=== PATIENT | female | born 1965 | race Caucasian/White ===

== ENCOUNTER → 2019-07-30 07:26 | Outpatient (CLI) | payer BC, MEDICARE, SELFPAY ==
--- NOTE | ~2019-07-30 | MM_ITS ---
EXAMINATION: MM screening pk BI w kaz HISTORY: Screening mammogram TECHNIQUE: Craniocaudal and mediolateral oblique 3-D tomosynthesis images were obtained and synthetic 2-D images were generated. CAD analysis was submitted and interpreted. COMPARISON: 11/25/2017, 07/22/2016, 05/30/2014 bilateral digital screening mammogram examinations BREAST PARENCHYMAL COMPOSITION: There are scattered areas of fibroglandular density. FINDINGS: There is no evidence of suspicious mass, calcification, or architectural distortion to sugg est malignancy in either breast. There has been no suspicious interval change. IMPRESSION: 1. No mammographic evidence of malignancy. 2. Recommend routine screening mammography in one year. BI-RADS Category 1: Negative Reviewed, dictated and finalized at location A.
== END ==
PROVIDERS: PCP Family Medicine; Visit Provider Physician Assistant
DX: Z12.31 Encounter for screening mammogram for malignant neoplasm of breast (principal)
CPT/HCPCS: 77063; 77067

== ENCOUNTER → 2020-10-27 12:06 | Outpatient (CLI) | payer BC, MEDICARE, SELFPAY ==
--- NOTE | ~2020-10-27 | MM_ITS ---
EXAMINATION: MM screening [facility] BI w kaz HISTORY: Screening mammogram TECHNIQUE: Craniocaudal and mediolateral oblique 3-D tomosynthesis images were obtained and synthetic 2-D images were generated. CAD analysis was submitted and interpreted. COMPARISON: 07/30/2019, 11/25/2017, 07/22/2016 BREAST PARENCHYMAL COMPOSITION: The breasts are almost entirely fatty. FINDINGS: There are stable asymmetries in both breasts. There is no evidence of suspicious mass, calc ification, or architectural distortion to suggest malignancy in either breast. There has been no susp icious interval change. IMPRESSION: 1. No mammographic evidence of malignancy. 2. Recommend routine screening mammography in one year. BI-RADS Category 2: Benign finding(s). Reviewed, dictated and finalized at location A.
== END ==
PROVIDERS: PCP Family Medicine; Visit Provider Physician Assistant
DX: Z12.31 Encounter for screening mammogram for malignant neoplasm of breast (principal)
CPT/HCPCS: 77063; 77067

== ENCOUNTER 2021-05-12 08:47 | Outpatient (CLI) | payer BC, MEDICARE, SELFPAY ==
--- NOTE | ~2021-05-12 | XR_ITS ---
EXAMINATION: XR knee RT min 4V DATE: 05/12/2021 09:15 INDICATION: Lateral right knee pain TECHNIQUE: Anteroposterior, 2 oblique and crosstable lateral views of the right knee were obtained COMPARISON: None. FINDINGS: Alignment is normal. No fracture. Joint spaces appear relatively preserved on nonweightbearing imagi ng. There are tiny marginal osteophytes in all 3 compartments consistent with at least minimal tricom partmental osteoarthritis. Very small right knee joint effusion at the suprapatellar pouch. Small loo se osteochondral body at the posterior recess. Soft tissues are unremarkable. IMPRESSION: 1. At least minimal tricompartmental osteoarthritis at the right knee which could be underestimated o n nonweightbearing imaging. 2. Small right knee joint effusion. Reviewed, dictated and finalized at location A. GER PROGRAM IMPRESSION: 1. At least minimal tricompartmental osteoarthritis at the right knee which cou ld be underestimated on nonweightbearing imaging. 2. Small right knee joint effusion.
== END 2021-05-12 08:48 | disposition home or self-care (01) ==
LOC: ANHIMG 08:54
PROVIDERS: PCP Family Medicine; Visit Provider Physician Assistant
DX: M25.461 Effusion, right knee (principal); M17.11 Unilateral primary osteoarthritis, right knee
CPT/HCPCS: 73564

== ENCOUNTER 2021-06-04 17:44 | Emergency (ER) | payer BC, MEDICARE, SELFPAY ==
--- NOTE | 2021-06-04 18:00 | ED.WOUNDLAC ---
HPI - Wound/Laceration General Chief Complaint: Wound/Laceration Stated Complaint: Right Hand Laceration Time Seen by Provider: 06/04/21 18:10 Source: patient, RN notes reviewed and old records reviewed Mode of arrival: ambulatory Limitations: no limitations History of Present Illness HPI narrative: 55-year-old female presents to the [facility] with 2 lacerations to the right hand 1 over second MCP joint the other over first MCP joint. Bleeding is controlled. Full range of motion. Sensation intact. Capillary refill under 2 seconds. States that she was washing a mug when it broke and cut her. Unknown last Tdap Related Data Home Medications Medication Instructions Recorded Confirmed atorvastatin 06/04/21 diclofenac sodium PO 06/04/21 losartan 06/04/21 Allergies Allergy/AdvReac Type Severity Reaction Status Date / Time No Known Allergies Allergy Unverified 08/05/16 13:03 Review of Systems Review of Systems: All systems reviewed & are unremarkable except as noted in HPI and below Constitutional: Constitutional: Reports no additional constitutional complaints, Denies chills and Denies fever(s) Eyes: Eyes: Reports no additional eye complaints ENT: Reports system reviewed and no additional complaints, except as documented Cardiovascular: Cardiovascular: Reports no additional cardiovascular complaints and Denies chest pain Respiratory: Respiratory: Reports no additional respiratory complaints, Denies cough, Denies dyspnea and Denies wheezing Gastrointestinal: Gastrointestinal: Reports no additional gastrointestinal complaints, Denies abdominal pain, Denies nausea and Denies vomiting Musculoskeletal: Musculoskeletal: Reports no additional musculoskeletal complaints Integumentary/Breasts: Skin/Breast: Reports as per HPI Comments: 2 lacerations MCP joint finger 1 and 2 Neurologic: Reports system reviewed and no additional complaints, except as documented Psychiatric: Psychiatric: Reports no additional psychiatric complaints Allergic/Immunologic: Allergic/Immunologic: Reports no additional allergic/immunologic complaints [facility] Surgical History Surgical History (Updated 06/04/21 @ 20:00 by Erin Leigh) S/P hernia surgery Family History Family History Father Family history of heart disease in male family member before age 55 Other Family history of cardiovascular disease Family history of malignant neoplasm Social History Social History Smoking status: Never smoker Alcohol intake: current Comments At the time of my signature, I reviewed and agree with the nursing past medical, surgical, social, and family history. There is no relevant family history pertinent to the patient complaint. Exam Const: General: healthy appearing, no acute distress and alert Nutritional Appearance: well nourished Orientation/consciousness: patient oriented x3 Limitations: no limitations HENMT: Head: normal to inspection Eyes: Pupils: Equal, round and reactive pupils present Neck: Neck: normal visual inspection, no lymphadenopathy and no meningeal signs Chest: Chest palpation & inspection: normal inspection of the chest Resp: Effort & Inspection: normal respiratory effort Cardio: Rate: regular rate Rhythm: regular rhythm : General: Yes no CVA tenderness Skin: General skin exam: normal color Wounds: wounds noted laceration right posterior thumb size (1); without any surrounding erythema, laceration right posterior 2nd finger size (1.5); without any surrounding erythema Neuro: General: patient oriented x3, moves all extremities, no meningeal signs and no focal motor deficits Cranial nerves: Yes Equal, round and reactive pupils present Speech: normal speech Gait exam (Neuro): Normal gait present Extrem: General: normal to inspection Psych: Appearance: grossly normal and well kempt Mental Status: mental status grossly normal Affect: normal
[2021-06-04 18:06] VITALS: BP 111/76; PULSE 76; RESP 16; TEMP 36.6; O2SAT 99
[2021-06-04] MEDS: TETANUS,DIPHTHERIA,AC PERTUSSIS ADULT (0.5 ML) BOOSTRIX IM (18:18)
[2021-06-04 18:24] VITALS: BP 111/76; PULSE 76; RESP 16; TEMP 36.6; O2SAT 99
--- NOTE | 2021-06-04 18:38 | PC.NURSE ---
report to jeremy oreilly. emd teacher and rn at bedside.
== END 2021-06-04 19:05 | disposition home or self-care (01) ==
PROVIDERS: Emergency Provider Nurse Practitioner; PCP Family Medicine
DX: S61.411A Laceration without foreign body of right hand, initial encounter (principal); W45.8XXA Other foreign body or object entering through skin, initial encounter; Y93.G1 Activity, food preparation and clean up; Z23 Encounter for immunization; E78.00 Pure hypercholesterolemia, unspecified; I10 Essential (primary) hypertension
CPT/HCPCS: 12001; 90471; 90715; 99212; G0463

== ENCOUNTER 2021-09-28 14:29 | Outpatient (CLI) | payer BC, MEDICARE, SELFPAY ==
--- NOTE | ~2021-09-28 | XR_ITS ---
EXAMINATION: XR chest 2V 09/28/2021 14:52 INDICATION: Cough PROCEDURE: 2 view chest COMPARISON: 08/03/2011 FINDINGS: The lungs are clear. The cardiomediastinal silhouette is within normal limits. There are no pleural effusions. There is no pneumothorax suspected. There are cholecystectomy clips. IMPRESSION: 1: NO ACUTE CARDIOPULMONARY DISEASE. Reviewed, dictated and finalized at location B.
== END 2021-09-28 14:30 | disposition home or self-care (01) ==
LOC: ANHIMG 14:41
PROVIDERS: PCP Family Medicine; Visit Provider Physician Assistant
DX: R05.9 Cough, unspecified (principal)
CPT/HCPCS: 71046

== ENCOUNTER 2021-10-13 09:36 | Outpatient (CLI) | payer BC, MEDICARE, SELFPAY ==
--- NOTE | ~2021-10-13 | US_ITS ---
EXAMINATION: US abdomen complete DATE: 10/13/2021 10:20 INDICATION: Elevated liver function tests, diarrhea TECHNIQUE: Multiple grayscale and Doppler ultrasound images of the abdomen were obtained. COMPARISON: 07/22/2016 FINDINGS: The head, body, and tail of the pancreas are normal. The liver is normal with normal echoge nicity and echotexture. No surface nodularity. Normal hepatopetal flow in the main portal vein. The g allbladder is surgically absent. The normal common bile duct measures 5 mm. The visualized portions o f the aorta and inferior vena cava are normal. The right kidney measures 9.3 x 5.9 x 4.8 cm. The left kidney measures 10.6 x 5.0 x 6.6 cm. The kidne ys demonstrate normal parenchymal echogenicity. There is no hydronephrosis. The spleen is normal in a ppearance and measures 8.1 cm. IMPRESSION: 1. Unremarkable postcholecystectomy ultrasound. Reviewed, dictated and finalized at location A.
== END 2021-10-13 09:37 | disposition home or self-care (01) ==
PROVIDERS: PCP Family Medicine; Referring Provider Internal Medicine Gastroenterology; Visit Provider Family Medicine
DX: R19.7 Diarrhea, unspecified (principal); R94.5 Abnormal results of liver function studies
CPT/HCPCS: 76700

== ENCOUNTER 2021-10-14 11:02 | Outpatient (CLI) | payer BC, MEDICARE, SELFPAY ==
[2021-10-14 12:26] LABS: Hematocrit 41.4 % (37.0-47.0); Hemoglobin 14.1 g/dL (12.0-15.0); Mean Corpuscular HGB Conc 34.1 g/dl (32-36); Mean Corpuscular Hemoglobin 33.2 pg (26-34); Mean Corpuscular Volume 97.4 fl (80-100); Mean Platelet Volume 9.4 fl (7.4-10.4); Platelet Count Result 313 k/mm3 (150-375); Red Blood Count 4.25 M/mm3 (4.2-5.4); Red Cell Distribution Width 13.3 % (11.5-14.5); White Blood Count 7.7 K/mm3 (4.5-10.0)
[2021-10-14 12:39] LABS: Prothrombin Time 12.4 Seconds (11.1-14.7)
[2021-10-14 12:50] LABS: Alanine Aminotransferase 54 U/L (6-35); Albumin Level 4.5 g/dL (3.5-5.1); Alkaline Phosphatase 125 U/L (38-126); Anion Gap 6 mmol/L (8-16); Aspartate Amino Transferase 45 U/L (14-36); Bilirubin,Total 1.4 mg/dL (0.2-1.3); Blood Urea Nitrogen 17 mg/dL (7-17); CRP < 0.5 mg/dL (<1.0); Calcium 9.3 mg/dL (8.4-10.2); Carbon Dioxide 28 mmol/L (22-30); Chloride 106 mmol/L (98-107); Estimated Glomerular Filt Rate 58; Glucose 91 mg/dL (65-110); Iron 79 ug/dL (37-170); Potassium 4.1 mmol/L (3.4-5.0); Sodium 140 mmol/L (137-145)
[2021-10-14 12:59] LABS: Percent Iron Saturation 24 % (20-50)
[2021-10-14 13:54] LABS: Erythrocyte Sedimentation Rate 24 mm/hr (0-20)
[2021-10-16 10:14] LABS: Hepatitis A Antibody Total Reactive (Nonreactive)
[2021-10-17 12:10] LABS: LKM 1 Antibody <=20.0 U (<=20.0)
[2021-10-18 13:05] LABS: Mitochondrial (M2) Ab (IgG) <=20.0 U (<=20.0)
[2021-10-18 19:51] LABS: Actin Antibody (IgG) <20 U (<20)
== END 2021-10-14 11:03 | disposition home or self-care (01) ==
LOC: ANHLAB 12:00
PROVIDERS: PCP Family Medicine; Visit Provider Nurse Practitioner
DX: E66.9 Obesity, unspecified (principal); R10.84 Generalized abdominal pain; R15.9 Full incontinence of feces; R19.4 Change in bowel habit; R19.7 Diarrhea, unspecified; R74.8 Abnormal levels of other serum enzymes
CPT/HCPCS: 36415; 80048; 80076; 82728; 83516; 83520; 83540; 83550; 85027; 85610; 85652; 86038; 86140; 86376; 86708

== ENCOUNTER 2021-10-15 09:42 | Outpatient (CLI) | payer BC, MEDICARE, SELFPAY ==
[2021-10-15 11:04] LABS: Toxigenic C. Diff NEGATIVE (NEGATIVE)
== END 2021-10-15 09:43 | disposition home or self-care (01) ==
PROVIDERS: PCP Family Medicine; Visit Provider Nurse Practitioner
DX: E66.9 Obesity, unspecified (principal); R10.84 Generalized abdominal pain; R15.9 Full incontinence of feces; R19.4 Change in bowel habit; R19.7 Diarrhea, unspecified; R74.8 Abnormal levels of other serum enzymes
CPT/HCPCS: 87045; 87177; 87209; 87427; 87493

== ENCOUNTER 2021-10-22 01:15 | Day surgery (SDC) | payer BC, MEDICARE, SELFPAY ==
[2021-10-22 10:32] VITALS: BP 129/89; PULSE 77; RESP 20; TEMP 36.4; O2SAT 99; BMI 37.6
[2021-10-22] MEDS: LACTATED RINGERS 1,000 ML 150 ML IV CONT (10:45)
--- NOTE | 2021-10-22 11:01 | WPDANESEPPF ---
Anes - Initial Pre Proc Eval Procedure: Operation Date: 10/22/21 11:15 Proposed Procedures p Esophagogastroduodenoscopy & Colonoscopy - Jaime Hardwick MD Date/Time: 10/22/21 11:01 Surgeon: Jaime Hardwick MD Pre Op Diagnosis: abdominal pain, diarrhea Patient Data Age: 56 Gender: F Height: 1.63 m Weight: 99.4 kg Last Vital Signs Temp 97.6 F 10/22/21 10:32 Pulse 77 10/22/21 10:32 Resp 20 10/22/21 10:32 BP 129/89 10/22/21 10:32 Pulse Ox 99 10/22/21 10:32 O2 Del Method Room Air 10/22/21 10:32 Allergies Allergy/AdvReac Type Severity Reaction Status Date / Time No Known Allergies Allergy Unverified 10/14/21 09:28 Home Medications Medication Instructions Recorded Confirmed Type atorvastatin 20 mg tablet (Lipitor) 06/04/21 10/19/21 History losartan 50 mg tablet (Cozaar) 50 mg PO 1XD 06/04/21 10/19/21 History cholestyramine-aspartame 4 gram 4 ea PO DAILY 10/14/21 10/19/21 History oral powder (Cholestyramine Light) Pataday 1 % EACH EYE DIRECTED 10/19/21 10/22/21 History Patient hx anesthesia problems: none Family hx anesthesia problems: none Results Review: All pre-operative results and documents have been reviewed as part of the pre-operative evaluation. [facility] Past Medical History Medical History (Updated 10/14/21 @ 10:05 by Barb Delong APRN) AC (acromioclavicular) joint bone spurs Achilles tendinitis Change in bowel habits Elevated liver enzymes Obesity Polycystic ovaries Surgical History Surgical History (Updated 10/19/21 @ 10:01 by Chirag Merritt RN) History of cholecystectomy History of tonsillectomy S/P hernia surgery Family History Family History Father Family history of heart disease in male family member before age 55 Other Family history of cardiovascular disease Family history of malignant neoplasm Social History Social History (Updated 10/14/21 @ 09:47 by Vilma Santana MA) Smoking status: Never smoker Alcohol intake: current Drinks per week: 1 Alcohol use details: About 5 drinks per year. Substance use: never Substance use type: does not use Living arrangements: with family Anes - Evsky Final PreProcedure Day of Procedure 10/22/21 11:01 Patient weight: obese Heart: regular rate and rhythm Lungs: clear to auscultation Airway: Mallampati scale class II Neurological: alert and oriented Last oral intake: >/= 8 hours ASA classification: III Emergent: no Anesthetic plan: proceed Anesthesia type and monitoring: general GIVS and standard monitoring Results Review: All pre-operative results and documents have been reviewed as part of the pre-operative evaluation. Informed Consent: The patient's anesthetic plan and its attendant risks and benefits were discussed with the patient/family/POA. Questions were solicited and answers provided to the satisfaction of the patient/family/POA.
--- NOTE | 2021-10-22 11:14 | WPDHPUPDATE1 ---
History and Physical Update Update Date/Time: 10/22/21 11:14 Patient appears to have tenderness more located over the xiphoid process today. Other symptoms and history unchanged. History and Physical has been reviewed, including an updated exam of the patient. There are NO changes in the patient's condition. Risks, benefits, and alternatives have been discussed and questions answered. Patient agrees to proceed with procedure.
--- NOTE | 2021-10-22 11:39 | SUR.OPER ---
EGD ENDED AT 1131, COLONOSCOPY BEGAN AT 1139.
[2021-10-22 11:53] VITALS: BP 89/56; PULSE 91; RESP 18; O2SAT 95
[2021-10-22 12:03] VITALS: BP 96/57; PULSE 104; RESP 28; O2SAT 98
[2021-10-22 12:13] VITALS: BP 100/70; PULSE 86; RESP 19; O2SAT 94
== END 2021-10-22 12:29 | disposition home or self-care (01) ==
PROVIDERS: PCP Family Medicine; Visit Provider Internal Medicine Gastroenterology
PROC: 0DJ08ZZ Inspection of Upper Intestinal Tract, Via Natural or Artificial Opening Endoscopic (ICD-10-PCS; CPT 43235; principal; 2021-10-22 11:15)
DX: R19.7 Diarrhea, unspecified (principal); K22.2 Esophageal obstruction; R15.1 Fecal smearing; K64.8 Other hemorrhoids; R10.11 Right upper quadrant pain; R10.32 Left lower quadrant pain; E28.2 Polycystic ovarian syndrome; Z90.49 Acquired absence of other specified parts of digestive tract; K44.9 Diaphragmatic hernia without obstruction or gangrene; E66.9 Obesity, unspecified; Z68.37 Body mass index [BMI] 37.0-37.9, adult
CPT/HCPCS: 45380; 43239; 43450; 87081; 88305; J2704; J7120

== ENCOUNTER → 2021-10-26 12:38 | Outpatient (CLI) | payer SELFPAY ==
--- NOTE | ~2021-10-26 | CT_ITS ---
This report was recreated [12/09/2021]. Original report was signed by Jovan Heredia M.D. on 10/28/19 EXAMINATION: CT abdomen pelvis w con INDICATION: Generalized abdominal pain, change in bowel habits TECHNIQUE: Computed tomographic images of the abdomen and pelvis were obtained after the administrati on of 100 cc of Omnipaque 350 intravenous contrast. The dose-length product (DLP) was 1169.93 mGy-cm. Automated exposure control and iterative reconstruction technique were employed. COMPARISON: 03/24/2009 FINDINGS: Minimal dependent atelectasis is present in the lung bases. The heart size is normal. The g allbladder is surgically absent. There is mild enlargement of the common bile duct and central intrah epatic ducts which is likely due to post cholecystectomy state. The liver, spleen, pancreas, and adre nal glands are normal. There is a 4 mm nonobstructing stone of the left kidney upper pole. The right kidney is unremarkable. No pathologically enlarged abdominal or pelvic lymph nodes are identified. Th ere is no free intraperitoneal gas or evidence of bowel obstruction. IMPRESSION: 1. No CT correlate for the patient's symptoms. Reviewed, dictated and finalized at location B. Dictated By: Jovan Heredia MD 10/27/21 1552 Signed By: <Electronically signed by Jovan Heredia MD in OV> Reviewed, dictated and finalized at location B.
--- NOTE | ~2021-10-26 | CT_ITS ---
EXAMINATION: CT abdomen pelvis w con INDICATION: Generalized abdominal pain, change in bowel habits TECHNIQUE: Computed tomographic images of the abdomen and pelvis were obtained after the administrati on of 100 cc of Omnipaque 350 intravenous contrast. The dose-length product (DLP) was 1169.93 mGy-cm. Automated exposure control and iterative reconstruction technique were employed. COMPARISON: 03/24/2009 FINDINGS: Minimal dependent atelectasis is present in the lung bases. The heart size is normal. The g allbladder is surgically absent. There is mild enlargement of the common bile duct and central intrah epatic ducts which is likely due to post cholecystectomy state. The liver, spleen, pancreas, and adre nal glands are normal. There is a 4 mm nonobstructing stone of the left kidney upper pole. The right kidney is unremarkable. No pathologically enlarged abdominal or pelvic lymph nodes are identified. Th ere is no free intraperitoneal gas or evidence of bowel obstruction. IMPRESSION: 1. No CT correlate for the patient's symptoms. Reviewed, dictated and finalized at location B.
[2021-11-16 10:37] LABS: Estimated Glomerular Filt Rate 58
== END ==
PROVIDERS: PCP Family Medicine; Visit Provider Nurse Practitioner
DX: E66.9 Obesity, unspecified (principal); R19.4 Change in bowel habit; R19.7 Diarrhea, unspecified; R74.8 Abnormal levels of other serum enzymes; R10.9 Unspecified abdominal pain
CPT/HCPCS: 99199; 36415; 74177; 82565; Q9967

== ENCOUNTER 2022-01-24 10:16 | Outpatient (CLI) | payer BC, MEDICARE, SELFPAY ==
[2022-01-24 10:46] LABS: Alanine Aminotransferase 26 U/L (6-35); Albumin Level 4.6 g/dL (3.5-5.1); Alkaline Phosphatase 142 U/L (38-126); Aspartate Amino Transferase 35 U/L (14-36); Bilirubin,Total 1.6 mg/dL (0.2-1.3)
== END 2022-01-24 10:17 | disposition home or self-care (01) ==
PROVIDERS: PCP Family Medicine; Visit Provider Nurse Practitioner
DX: R74.8 Abnormal levels of other serum enzymes (principal)
CPT/HCPCS: 36415; 80076

== ENCOUNTER 2022-01-26 15:01 | Outpatient (CLI) | payer BC, MEDICARE, SELFPAY ==
--- NOTE | ~2022-01-26 | XR_ITS ---
EXAMINATION: XR abdomen/kub 1V INDICATION: Abnormal bowel sounds TECHNIQUE: Supine views of the abdomen were obtained on 2 radiographs. COMPARISON: 10/26/2021, 09/18/2012 FINDINGS: The bowel gas pattern is normal. There are no dilated loops of bowel. Cholecystectomy clips are noted. IMPRESSION: 1. No radiographic correlate for the patient's symptoms. Reviewed, dictated and finalized at location B.
== END 2022-01-26 15:02 | disposition home or self-care (01) ==
LOC: ANHIMG 15:08
PROVIDERS: PCP Family Medicine; Visit Provider Nurse Practitioner
DX: R19.15 Other abnormal bowel sounds (principal); K58.2 Mixed irritable bowel syndrome; E80.4 Gilbert syndrome; E66.9 Obesity, unspecified
CPT/HCPCS: 74018

== ENCOUNTER 2022-03-07 12:09 | Outpatient (CLI) | payer BC, MEDICARE, SELFPAY ==
--- NOTE | ~2022-03-07 | XR_ITS ---
XR chest 2V DATE: 03/07/2022 12:37 INDICATION: Cough, bronchitis TECHNIQUE: PA and lateral views COMPARISON: 09/28/2021 PA and lateral chest FINDINGS: Normal heart size. No hilar or mediastinal enlargement. No pulmonary infiltrate or consolid ation, pleural effusion or pulmonary vascular congestion or pneumothorax. Status post cholecystectomy. IMPRESSION: No active cardiopulmonary disease Reviewed, dictated and finalized at location A. D RESEARCH ASSISTANT
== END 2022-03-07 12:10 | disposition home or self-care (01) ==
PROVIDERS: PCP Family Medicine; Visit Provider Physician Assistant
DX: J40 Bronchitis, not specified as acute or chronic (principal)
CPT/HCPCS: 71046

== ENCOUNTER → 2022-04-04 12:52 | Outpatient (CLI) | payer BC, MEDICARE, SELFPAY ==
--- NOTE | ~2022-04-04 | MM_ITS ---
EXAMINATION: MM screening pk BI w kaz HISTORY: Screening TECHNIQUE: Craniocaudal and mediolateral oblique 3-D tomosynthesis images were obtained and synthetic 2-D images were generated. CAD analysis was submitted and interpreted. COMPARISON: Comparison to multiple prior studies sequentially, with oldest reviewed study dated 07/2017. BREAST PARENCHYMAL COMPOSITION: There are scattered areas of fibroglandular density. FINDINGS: There is no evidence of suspicious mass, calcification, or architectural distortion to sugg est malignancy in either breast. There has been no suspicious interval change. IMPRESSION: 1. No mammographic evidence of malignancy. 2. Recommend routine screening mammography in one year. BI-RADS Category 1: Negative Reviewed, dictated and finalized at location B. DRYING SUPERVISOR COOKING CASING
== END ==
PROVIDERS: PCP Family Medicine; Visit Provider Family Medicine
DX: Z12.31 Encounter for screening mammogram for malignant neoplasm of breast (principal)
CPT/HCPCS: 77063; 77067

== ENCOUNTER 2022-04-05 09:38 | Outpatient (CLI) | payer BC, MEDICARE, SELFPAY ==
[2022-04-05 11:42] LABS: Alanine Aminotransferase 29 U/L (6-35); Albumin Level 4.6 g/dL (3.5-5.1); Alkaline Phosphatase 128 U/L (38-126); Aspartate Amino Transferase 33 U/L (14-36); Bilirubin Indirect 1.9 mg/dL (0-1.1); Bilirubin,Total 1.9 mg/dL (0.2-1.3)
[2022-04-05 12:24] LABS: Erythrocyte Sedimentation Rate 40 mm/hr (0-20)
[2022-04-08 06:13] LABS: GGT 31 U/L (3-70)
[2022-04-08 09:59] LABS: Alpha-1-Antitrypsin, QN 145 mg/dL (83-199); Ceruloplasmin 31 mg/dL (18-53)
[2022-04-09 11:31] LABS: Alkaline Phosphatase 116 U/L (37-153); Macrohepatic Isoenzymes 0 % (<=0)
== END 2022-04-05 09:39 | disposition home or self-care (01) ==
PROVIDERS: PCP Family Medicine; Visit Provider Nurse Practitioner
DX: K58.1 Irritable bowel syndrome with constipation (principal); R79.89 Other specified abnormal findings of blood chemistry; R74.8 Abnormal levels of other serum enzymes
CPT/HCPCS: 36415; 80076; 82103; 82390; 82977; 84075; 84080; 84443; 85652

== ENCOUNTER 2022-06-08 19:33 | Emergency (ER) | payer BC, MEDICARE, SELFPAY ==
--- NOTE | ~2022-06-08 | CT_ITS ---
EXAMINATION: CT abdomen pelvis wo con DATE: 06/09/2022 02:51 INDICATION: Right flank pain. TECHNIQUE: Computed tomography (CT) of the abdomen and pelvis was performed without intravenous contr ast. Automated exposure control and iterative reconstruction technique were employed. The dose-length product was 1253.36 mGy-cm. COMPARISON: CT abdomen and pelvis 10/26/2021 FINDINGS: The visualized portions of the lung bases demonstrate mild atelectasis. No pleural effusion . The heart size is normal. No pericardial effusion. The liver and spleen are normal. There are ramirez es of cholecystectomy. The pancreas, adrenal glands, and kidneys are normal. There is no urolithiasis . There is prominent fat in the inguinal canals that may be hernias. There is diverticulosis of the c olon without evidence of diverticulitis. There are no dilated loops of bowel. The appendix is not vis ualized. There are no pathologically enlarged lymph nodes. There is no free intraperitoneal fluid. Th ere is mild thoracolumbar spondylosis. IMPRESSION: 1. No urolithiasis. Reviewed, dictated and finalized at location A. ICAL DATA COORDINATOR IMPRESSION: 1. No urolithiasis.
--- NOTE | ~2022-06-08 | XR_ITS ---
EXAM: XR thoracic spine 3V DATE: 06/08/2022 21:13 HISTORY: Back Pain . COMPARISON: X-ray chest 03/07/2022, CT C-spine 07/04/2016, CT thorax 07/12/2010. FINDINGS: Cholecystomy clips. Mild scoliosis. Vertebral body alignment intact. Vertebral body heights preserved. Multilevel mild disc space narrowing and marginal osteophytosis. No traumatic malalignmen t or fracture. Visualized lung parenchyma is clear. IMPRESSION: No acute fracture or traumatic malalignment detected in the thoracic spine. Reviewed, dictated and finalized at location K. OPERATIVE MANAGER IMPRESSION: No acute fracture or traumatic malalignment detected in the thoraci c spine.
--- NOTE | ~2022-06-08 | XR_ITS ---
EXAM: XR lumbar spine 2-3V DATE: 06/08/2022 21:13 HISTORY: BACK PAIN . COMPARISON: None. FINDINGS: 5 nonrib-bearing lumbar-type vertebral bodies. Pedicles intact. Normal vertebral body alig nment. Vertebral body heights preserved. Multilevel mild disc narrowing and marginal osteophytosis. M ultilevel mild facet sclerosis and hypertrophy. No fracture or dislocation. IMPRESSION: No acute fracture or traumatic malalignment detected in the lumbar spine. Reviewed, dictated and finalized at location K. RHOUSE ELECTRICIAN
[2022-06-08 20:36] VITALS: BP 142/92; PULSE 75; RESP 20; TEMP 37.2; O2SAT 100
[2022-06-08 21:04] LABS: Appearance Urine Clear (Clear); Bilirubin Urine Negative (Negative); Blood Urine Negative (Negative); Color Urine Yellow (Yellow); Glucose Urine UA Negative (Negative); Ketones Urine Negative (Negative); Leukocyte Esterase Ur Trace LEU/UL (Negative); Nitrate Urine Negative (Negative); Protein Urine Negative (Negative); Specific Grav Ur 1.015 (1.001-1.035); Urobilinogen Urine 0.2 mg/dL (<2.0); pH Urine 5.5 (5.0-9.0)
[2022-06-08 21:07] LABS: Add Urine Microscopic? YES; RBC Urine 0-2 /hpf (0-2); Squamous Epithelial Cell Urine Rare /hpf (Few)
--- NOTE | 2022-06-09 01:34 | ECG_ITS ---
Measurements Intervals [place] Rate: 65 P: 24 [place]: 157 QRS: 23 QRSD: 82 T: 47 QT: 381 QTc: 398 Interpretive Statements SINUS RHYTHM NO PREVIOUS ECG AVAILABLE FOR COMPARISON Electronically Signed On 06-09-2022 14:52:52 DRAW FRAME TENDER by Debbie Ceron M.D.
--- NOTE | 2022-06-09 01:35 | ED.GENADULT ---
HPI - General Adult General Chief complaint: Back Pain/Injury Stated complaint: BACK PAIN XWKS Time Seen by Provider: 06/09/22 00:52 History of Present Illness HPI narrative: this is a 56-year-old female presenting ED with a chief complaint of right-sided flank pain x 1 month. Patient states that she has been carrying her 50 lb dog that has been slowly dieing over last several weeks. Now she is having sharp right-sided flank pain that extends into her right lower quadrant. Pain is worse with movement. She denies fever, chills, hematuria or dysuria, overlying skin changes. Related Data Home Medications Medication Instructions Recorded Confirmed atorvastatin 20 mg tablet (Lipitor) 06/04/21 05/24/22 losartan 50 mg tablet (Cozaar) 50 mg PO 1XD 06/04/21 05/24/22 Pataday 1 % EACH EYE DIRECTED 10/19/21 05/24/22 acetaminophen 325 mg tablet 325 mg PO Q6H PRN 05/03/22 05/24/22 budesonide 160 mcg-glycopyr 9 2 inh inhalation BID 05/03/22 05/24/22 mcg-formot 4.8 mcg/actuation HFA inhaler (Breztri Aerosphere) doxycycline hyclate 100 mg capsule 100 mg PO DAILY 05/03/22 05/24/22 Allergies Allergy/AdvReac Type Severity Reaction Status Date / Time No Known Allergies Allergy Verified 06/09/22 00:31 [facility] Past Medical History Medical History Abnormal laboratory test AC (acromioclavicular) joint bone spurs Achilles tendinitis Chest pain at rest Colon cancer screening Dyslipidemia Elevated alkaline phosphatase level Elevated erythrocyte sedimentation rate Elevated LFTs Essential hypertension GERD (gastroesophageal reflux disease) Gilbert syndrome Hiatal hernia Hypertension Irritable bowel syndrome with alternating bowel habits Irritable bowel syndrome with constipation Lipoma of torso Major depressive disorder, recurrent, unspecified Migraine without aura, not intractable, without status migrainosus Obesity Obesity (BMI 30-39.9) Other internal derangements of right knee Polycystic ovaries Surgical History Surgical History H/O Achilles tendon repair H/O foot surgery H/O right knee surgery History of appendectomy Open cholecystectomy and appendectomy 2004 History of back surgery History of bladder surgery History of cholecystectomy Open cholecystectomy and appendectomy 2004 History of removal of ovarian cyst History of tonsillectomy S/P hernia surgery Incisional hernia repair with mesh by Dr. Gao 04/14/09 Family History Family History Father Family history of heart disease in male family member before age 55 Mother Heart disease Other Family history of cardiovascular disease Family history of malignant neoplasm Social History Social History Smoking status: Never smoker Alcohol intake: current Drinks per week: 1 Alcohol use details: About 5 drinks per year. Substance use: never Substance use type: does not use Living arrangements: with family Occupation/Education: unemployed Exam Narrative: APPEARANCE: patient appears uncomfortable Head: atraumatic. EYES: EOMI, NOSE: Atraumatic NECK: Trachea midline RESPIRATORY: No increased rate of breathing, clear to auscultation bilaterally CARDIOVASCULAR: RRR, no peripheral edema ABDOMINAL: Non-distended soft, nontender no guarding rebound MUSCULOSKELETAl: patient has tenderness to palpation over the right para spinal muscles. Some CVA tenderness. NEURO: Alert. Moving 4/4 extremities SKIN:: Warm, dry. Normal color PSYCHIATRIC: Normal affect Course Vital Signs Vital signs: Vital Signs Temperature 98.9 F 06/08/22 20:36 Pulse Rate 75 06/08/22 20:36 Respiratory Rate 20 06/08/22 20:36 Blood Pressure 142/92 H 06/08/22 20:36 Pulse Oximetry 100 06/08/22 20:36 Oxygen Delivery Room Air 06/08/22 20:36
[2022-06-09] MEDS: SODIUM CHLORIDE 0.9% IV 1,000 ML 999 ML IV CONT (01:54)
[2022-06-09] MEDS: IBUPROFEN 400 MG TABLET 800 MG PO (01:55)
[2022-06-09] MEDS: methocarbamoL 750 MG TABLET 1500 MG PO (01:55)
[2022-06-09] MEDS: ACETAMINOPHEN 500 MG TABLET 1000 MG PO (01:55)
[2022-06-09 02:07] LABS: Basophils Percent Auto 0.4 % (0.2-1.2); Eosinophils Percent Auto 0.4 % (0-4.4); Hematocrit 40.1 % (37.0-47.0); Hemoglobin 13.5 g/dL (12.0-15.0); Immature Granulocyte Absolute 0.01 K/mm3 (0.00-0.031); Immature Granulocyte Percent A 0.1 % (0-0.5); Lymphocytes Absolute Auto 2.21 K/mm3 (0.9-3.2); Lymphocytes Percent Auto 27.4 % (18.3-44.2); Mean Corpuscular HGB Conc 33.7 g/dl (32-36); Mean Corpuscular Hemoglobin 33.5 pg (26-34); Mean Corpuscular Volume 99.5 fl (80-100); Mean Platelet Volume 9.5 fl (7.4-10.4); Monocytes Absolute Auto 0.5 K/mm3 (0.1-0.6); Monocytes Percent Auto 6.4 % (2.6-8.5); Neutrophils Absolute Auto 5.3 K/mm3 (1.3-6.7); Neutrophils Percent Auto 65.3 % (45.5-73.1); Platelet Count Result 292 k/mm3 (150-375); Red Blood Count 4.03 M/mm3 (4.2-5.4); Red Cell Distribution Width 13.1 % (11.5-14.5); White Blood Count 8.1 K/mm3 (4.5-10.0)
[2022-06-09 02:29] LABS: Lipase 116 U/L (23-300)
[2022-06-09 02:36] LABS: Alanine Aminotransferase 26 U/L (6-35); Alkaline Phosphatase 122 U/L (38-126); Anion Gap 6 mmol/L (8-16); Aspartate Amino Transferase 28 U/L (14-36); Bilirubin,Total 1.6 mg/dL (0.2-1.3); Blood Urea Nitrogen 13 mg/dL (7-17); Carbon Dioxide 27 mmol/L (22-30); Chloride 107 mmol/L (98-107); Estimated CRCL calculation 83 ml/min; Estimated Glomerular Filt Rate > 60; Glucose 77 mg/dL (65-110); Potassium 3.7 mmol/L (3.4-5.0); Sodium 140 mmol/L (137-145)
[2022-06-09] MEDS: HYDROcodone/acetaminophen (*CRX) 5-325 MG TABLET 1 TAB PO (04:51)
[2022-06-09 04:52] VITALS: BP 109/74; PULSE 76; RESP 18; O2SAT 100
[2022-06-09] MEDS: LIDOCAINE 5% PATCH 1 PATCH (05:09)
== END 2022-06-09 05:10 | disposition home or self-care (01) ==
PROVIDERS: Emergency Provider Emergency Medicine; PCP Family Medicine
DX: N39.0 Urinary tract infection, site not specified (principal); S39.012A Strain of muscle, fascia and tendon of lower back, initial encounter; I10 Essential (primary) hypertension; K21.9 Gastro-esophageal reflux disease without esophagitis; X50.0XXA Overexertion from strenuous movement or load, initial encounter
CPT/HCPCS: 36415; 72072; 72100; 74176; 80053; 81001; 83690; 85025; 87086; 87088; 93005; 96360; 99284; A9270; J7030

== ENCOUNTER 2022-06-13 07:40 | Outpatient (CLI) | payer BC, MEDICARE, SELFPAY ==
[2022-06-13 08:23] LABS: Erythrocyte Sedimentation Rate 41 mm/hr (0-20)
== END 2022-06-13 07:41 | disposition home or self-care (01) ==
PROVIDERS: PCP Family Medicine; Visit Provider Family Medicine
DX: R70.0 Elevated erythrocyte sedimentation rate (principal)
CPT/HCPCS: 36415; 85652

== ENCOUNTER 2022-08-11 16:17 | Emergency (ER) | payer BC, MEDICARE, SELFPAY ==
--- NOTE | ~2022-08-11 | XR_ITS ---
XR knee RT 3V 08/11/2022 17:04 Indication: Right knee pain Procedure: 3 views right knee Comparison: 05/12/2021 Findings: There is mild tricompartment osteoarthritis of the right knee. No acute fracture, subluxati on or dislocation. No significant joint effusion. No foreign bodies. Impression: 1: Mild tricompartment osteoarthritis of the right knee. Reviewed, dictated and finalized at location A. Impression: 1: Mild tricompartment osteoarthritis of the right knee.
[2022-08-11 16:28] VITALS: BP 125/84; PULSE 111; RESP 16; TEMP 37.6; O2SAT 97
--- NOTE | 2022-08-11 16:44 | ED.EXTPRO ---
HPI - Extremity Problem General Chief complaint: Extremity Problem,Nontraumatic Stated complaint: Right Knee Pain Time Seen by Provider: 08/11/22 16:44 Source: patient, RN notes reviewed and old records reviewed Mode of arrival: ambulatory Limitations: no limitations History of Present Illness HPI Narrative: 57-year-old female presents to the [facility] with complaints of right knee pain with some swelling. patient reports pain for over a week. Denies any erythema. No lower leg edema. Walks with a normal gait Onset (ago): week(s) ( over 1 week) Related Data Home Medications Medication Instructions Recorded Confirmed Pataday 1 % EACH EYE DIRECTED 10/19/21 08/11/22 Allergies Allergy/AdvReac Type Severity Reaction Status Date / Time No Known Allergies Allergy Verified 08/11/22 16:24 Review of Systems Review of Systems: All systems reviewed & are unremarkable except as noted in HPI and below Constitutional: Constitutional: Reports no additional constitutional complaints Eyes: Eyes: Reports no additional eye complaints ENT: Reports system reviewed and no additional complaints, except as documented Cardiovascular: Cardiovascular: Reports no additional cardiovascular complaints, Denies chest pain and Denies dyspnea Respiratory: Respiratory: Reports no additional respiratory complaints, Denies chest congestion, Denies cough and Denies dyspnea Gastrointestinal: Gastrointestinal: Reports no additional gastrointestinal complaints, Denies abdominal pain, Denies nausea and Denies vomiting Musculoskeletal: Musculoskeletal: Reports as per HPI, Reports arthralgias and Reports joint swelling Integumentary/Breasts: Skin/Breast: Reports system reviewed and no additional complaints, except as docu Neurologic: Reports system reviewed and no additional complaints, except as documented Psychiatric: Psychiatric: Reports no additional psychiatric complaints Allergic/Immunologic: Allergic/Immunologic: Reports no additional allergic/immunologic complaints [facility] Past Medical History Medical History Degenerative disc disease Dyslipidemia Elevated erythrocyte sedimentation rate Essential hypertension GERD (gastroesophageal reflux disease) Major depressive disorder, recurrent, unspecified Migraine without aura, not intractable, without status migrainosus PTSD (post-traumatic stress disorder) Surgical History Surgical History H/O Achilles tendon repair 05/02/16 H/O foot surgery H/O right knee surgery R knee arthroscopy 04/2017 History of appendectomy Open cholecystectomy and appendectomy 2004 History of back surgery R L4-5 microdiscectomy 11/25/19 History of bladder surgery urethral sling 07/2015 History of cholecystectomy Open cholecystectomy and appendectomy 2004 History of removal of ovarian cyst History of tonsillectomy S/P excision of lipoma suprasternal area 04/08/2016 S/P hernia surgery Incisional hernia repair with mesh by Dr. Gao 04/14/09 Family History Family History Father Family history of heart disease in male family member before age 55 Mother Heart disease Other Family history of cardiovascular disease Family history of malignant neoplasm Social History Social History Smoking status: Never smoker Alcohol intake: current Drinks per week: 1 Alcohol use details: About 5 drinks per year. Substance use: never Substance use type: does not use Lack of Transportation: No Lack of Food: Never True Current Housing: I Have Housing Concerned About Future Housing: No Difficulty Paying Gas/Electric Bills: No Difficulty Paying for Meds: No Currently Unemployed: YES Education: High School Diploma/GED Difficulty w/ Childcare or Family Care: No [place]
== END 2022-08-11 17:15 | disposition home or self-care (01) ==
PROVIDERS: Emergency Provider Nurse Practitioner; PCP Family Medicine
DX: M17.11 Unilateral primary osteoarthritis, right knee (principal); E78.5 Hyperlipidemia, unspecified; I10 Essential (primary) hypertension; K21.9 Gastro-esophageal reflux disease without esophagitis
CPT/HCPCS: 73562; 99213; G0463

== ENCOUNTER 2022-09-16 13:02 | Outpatient (CLI) | payer BC, MEDICARE, SELFPAY ==
[2022-09-16 13:43] LABS: CRP < 0.5 mg/dL (<1.0)
[2022-09-16 13:53] LABS: Erythrocyte Sedimentation Rate 28 mm/hr (0-20)
== END 2022-09-16 13:03 | disposition home or self-care (01) ==
LOC: ANHLAB 13:06
PROVIDERS: PCP Family Medicine; Visit Provider Family Medicine
DX: R70.0 Elevated erythrocyte sedimentation rate (principal)
CPT/HCPCS: 36415; 85652; 86038; 86140

== ENCOUNTER 2022-09-23 18:26 | Emergency (ER) | payer BC, MEDICARE, SELFPAY ==
--- NOTE | 2022-09-23 18:31 | ED.SKABFB ---
HPI - Skin/Abscess/Foreign Bdy General Chief complaint: Skin/Abscess/Foreign Body Stated complaint: Insect Bite Time Seen by Provider: 09/23/22 19:24 Source: patient and RN notes reviewed Mode of arrival: ambulatory Limitations: no limitations History of Present Illness HPI narrative: 57-year-old female presents with concern for tick bite. She reports she report to take off her back on Monday. She was not sure what kind of tick it was or how long it was there. She reports a red itchy bumps with surrounding tenderness. She denies any noticeable bull's-eye rash. She reports intermittent headache, denies joint pain, fever, chills, sweats, sore throat. Patient reports a history of [place] spotted fever as a child MD complaint: insect bite/sting Related Data Allergies Allergy/AdvReac Type Severity Reaction Status Date / Time No Known Allergies Allergy Verified 09/23/22 18:49 Review of Systems Review of Systems: CONSTITUTIONAL: Denies malaise, chills, sweats, or fever. EYES: Denies visual changes, redness, or discharge. ENT: Denies rhinorrhea, congestion, sinus pain, otalgia or sore throat. CARDIOVASCULAR: Denies chest pain, palpitations, or edema. RESPIRATORY: Denies cough or dyspnea. GASTROINTESTINAL: Denies abdominal pain, nausea, vomiting, diarrhea, bloody, or mucous stools. GENITOURINARY: Denies dysuria or hematuria. SKIN: Reports an itchy red bump on her back with surrounding tenderness MUSCULOSKELETAL: Denies new joint pain, or myalgia. NEUROLOGIC: Denies numbness, weakness. Reports occasional headache. All systems reviewed & are unremarkable except as noted in HPI and below PMFSH Past Medical History Medical History Degenerative disc disease Dyslipidemia Elevated erythrocyte sedimentation rate Essential hypertension GERD (gastroesophageal reflux disease) Major depressive disorder, recurrent, unspecified Migraine without aura, not intractable, without status migrainosus PTSD (post-traumatic stress disorder) Surgical History Surgical History H/O Achilles tendon repair 05/02/16 H/O foot surgery H/O right knee surgery R knee arthroscopy 04/2017 History of appendectomy Open cholecystectomy and appendectomy 2004 History of back surgery R L4-5 microdiscectomy 11/25/19 History of bladder surgery urethral sling 07/2015 History of cholecystectomy Open cholecystectomy and appendectomy 2004 History of removal of ovarian cyst History of tonsillectomy S/P excision of lipoma suprasternal area 04/08/2016 S/P hernia surgery Incisional hernia repair with mesh by Dr. Gao 04/14/09 Family History Family History Father Family history of heart disease in male family member before age 55 Mother Heart disease Other Family history of cardiovascular disease Family history of malignant neoplasm Social History Social History Smoking status: Never smoker Alcohol intake: current Drinks per week: 1 Alcohol use details: About 5 drinks per year. Substance use: never Substance use type: does not use Lack of Transportation: No Lack of Food: Never True Current Housing: I Have Housing Concerned About Future Housing: No Difficulty Paying Gas/Electric Bills: No Difficulty Paying for Meds: No Currently Unemployed: YES Education: High School Diploma/GED Difficulty w/ Childcare or Family Care: No Living arrangements: with family Occupation/Education: unemployed Gender identity (if verbalized by the patient): Female Comments At time of signature, agree with nursing past medical, surgical, social and family history. There is no relevant family history pertinent to the presenting complaint Exam Narrative: GENERAL: Well-appearing, well-nourished, and in no a
[2022-09-23 18:37] VITALS: BP 134/85; PULSE 84; RESP 16; TEMP 37.4; O2SAT 99
== END 2022-09-23 19:38 | disposition home or self-care (01) ==
PROVIDERS: Emergency Provider Nurse Practitioner; PCP Family Medicine
DX: S20.461A Insect bite (nonvenomous) of right back wall of thorax, initial encounter (principal); W57.XXXA Bitten or stung by nonvenomous insect and other nonvenomous arthropods, initial encounter; E78.5 Hyperlipidemia, unspecified; I10 Essential (primary) hypertension; K21.9 Gastro-esophageal reflux disease without esophagitis
CPT/HCPCS: 99213; G0463

== ENCOUNTER 2022-10-13 11:55 | Outpatient (CLI) | payer BC, MEDICARE, SELFPAY ==
--- NOTE | ~2022-10-13 | XR_ITS ---
XR abdomen/kub 1V 10/13/2022 12:22 INDICATION: Incontinence. TECHNIQUE: KUB COMPARISON: None FINDINGS: Bowel gas pattern is normal. There are cholecystectomy clips. There is a right pelvic fluid left There is no evidence of free air, mass, organomegaly, ascites or obstruction. No abnormal calc too are seen. The bones appear intact.. No acute osseous abnormality. IMPRESSION: 1: No acute abdominal abnormality identified. Reviewed, dictated and finalized at location L.
== END 2022-10-13 11:56 | disposition home or self-care (01) ==
LOC: ANHIMG 11:59
PROVIDERS: PCP Family Medicine; Visit Provider Nurse Practitioner
DX: R15.9 Full incontinence of feces (principal); R10.32 Left lower quadrant pain; R14.0 Abdominal distension (gaseous)
CPT/HCPCS: 74018

== ENCOUNTER 2022-10-18 12:29 | Outpatient (CLI) | payer BC, MEDICARE, SELFPAY ==
[2022-10-26 18:07] LABS: Calprotectin, Stool 52 mcg/g
== END 2022-10-18 12:30 | disposition home or self-care (01) ==
LOC: ANHLAB 12:31
PROVIDERS: PCP Family Medicine; Visit Provider Nurse Practitioner
DX: R15.9 Full incontinence of feces (principal)
CPT/HCPCS: 83993; 87045; 87427

== ENCOUNTER 2023-02-22 10:25 | Outpatient (CLI) | payer BC, MEDICARE, SELFPAY ==
[2023-02-22 11:19] LABS: CRP 0.8 mg/dL (<1.0)
[2023-02-22 11:25] LABS: Erythrocyte Sedimentation Rate 48 mm/hr (0-20)
== END 2023-02-22 10:26 | disposition home or self-care (01) ==
PROVIDERS: PCP Family Medicine; Visit Provider Family Medicine
DX: M25.50 Pain in unspecified joint (principal)
CPT/HCPCS: 36415; 85652; 86038; 86140

== ENCOUNTER → 2023-05-23 14:47 | Outpatient (CLI) | payer BC, MEDICARE, SELFPAY ==
--- NOTE | ~2023-05-23 | XR_ITS ---
EXAMINATION: XR chest 2V Exam Date/Time: 05/23/2023 15:02 RN ADMISSION HISTORY: R05.9 - Cough, unspecified Comparison: 03/07/2022. RESULT: Lines, tubes, and devices: Cholecystectomy clips. Lungs and pleura: Clear. Cardiomediastinal silhouette: Stable. Other: No acute osseous or upper abdominal finding. IMPRESSION: No acute cardiopulmonary process. Reviewed, dictated and finalized at location K. ADMISSION
== END ==
PROVIDERS: PCP Family Medicine; Visit Provider Physician Assistant
DX: R05.9 Cough, unspecified (principal)
CPT/HCPCS: 71046

== ENCOUNTER 2023-08-01 13:50 | Outpatient (CLI) | payer BC, MEDICARE, SELFPAY ==
--- NOTE | ~2023-08-01 | MM_ITS ---
EXAMINATION: MM screening pk BI w kaz HISTORY: Screening mammogram TECHNIQUE: Craniocaudal and mediolateral oblique 3-D tomosynthesis images were obtained and synthetic 2-D images were generated. CAD analysis was submitted and interpreted. COMPARISON: 04/04/2022, 10/27/2020 bilateral screening mammogram examinations BREAST PARENCHYMAL COMPOSITION: There are scattered areas of fibroglandular density. FINDINGS: There is no evidence of suspicious mass, calcification, or architectural distortion to sugg est malignancy in either breast. There has been no suspicious interval change. IMPRESSION: 1. No mammographic evidence of malignancy. 2. Recommend routine screening mammography in one year. BI-RADS Category 1: Negative Reviewed, dictated and finalized at location A.
== END 2023-08-01 13:51 ==
PROVIDERS: PCP Family Medicine; Visit Provider Family Medicine
DX: Z12.31 Encounter for screening mammogram for malignant neoplasm of breast (principal)
CPT/HCPCS: 77063; 77067

== ENCOUNTER 2023-09-21 11:27 | Outpatient (CLI) | payer BC, MEDICARE, SELFPAY ==
[2023-09-21 12:17] LABS: Erythrocyte Sedimentation Rate 21 mm/hr (0-20)
== END 2023-09-21 11:28 | disposition home or self-care (01) ==
PROVIDERS: PCP Family Medicine; Visit Provider Family Medicine
DX: R70.0 Elevated erythrocyte sedimentation rate (principal)
CPT/HCPCS: 36415; 85652

== ENCOUNTER 2024-05-21 06:38 | Outpatient (CLI) | payer BC, MEDICARE, SELFPAY ==
--- NOTE | ~2024-05-21 | MR_ITS ---
MRI of the right knee Clinical history: Medial meniscus tear Technique: Coronal proton density and proton density-weighted images, sagittal proton-density and T2 fat-sat images, and axial proton-density fat-saturated images were acquired. Findings: Anterior and posterior cruciate ligaments are intact. Medial collateral ligament and the la teral collateral ligament conflux are intact. Popliteus tendon is intact. No definite medial or lateral meniscal tear seen. There is intrasubstance degenerative signal in the posterior horn of the medial and lateral menisci. There is focal high-grade chondromalacia the patellar apex. There is extensive moderate to high-grade chondromalacia the femoral trochlea, especially centrally. There is high-grade chondral malacia at t he medial and lateral joint lines. Mild tricompartmental osteophyte formation is present. Extensor mechanism is intact. Small joint effusion present. No Lay's cyst. Impression: Moderate tricompartmental degenerative change with small joint effusion. No definite meniscal tear seen. There is intrasubstance degenerative signal in the posterior horn of the medial and lateral menisci. Reviewed, dictated and finalized at [facility]. STIGATION LIEUTENANT Impression: Moderate tricompartmental degenerative change with small joint effusion. No definite meniscal tear seen. There is intrasubstance degenerative signal in the posterior horn of the medial and lateral menisci.
--- OUTSIDE RECORDS SUMMARY | 2024-05-21 06:41 | XMS_ITS | Encounter Summary ---
Author Organization [facility] Address [address] [place] [address] Care Team Providers Care Car Servicer Name Role Phone Juan Borrego MD Primary Care Provider [phone] Reason for Visit * Reason Onset Date Comments Reschedule 05/21/2018 Encounter Details Date Type Department Care Team (Late st Contact Info) Description 05/21/2018 Telephone [facility] [place] [facility] [address] [facility] [address] [place] [address] Yolande Fam MD PhD [phone] [place], [place] [id number] Reschedule Social History Tobacco Use Types Packs/Day Years Used Date Smoking Tobacco: Never Smokeless Tobacco: Never Alcohol Use Standard Drinks/Week Comments Yes 0 (1 standard drink = 0.6 oz pur e alcohol) rarely Comments No Sex and Gender Information Value Date Recorded Sex Assigned at Not on file Legal Sex Female 11:58 PM BIOMETRICS HEAD Gender Identity Not on file Sexual Orientation Not on file documented as of this encounter Plan of Treatment Not on file documented as of this encounter Goals Goal Patient Goal Type Associated Problems Recent Progress Patient-Stated? Author CCM Chronic Pain Care Plan Chronic Care Management No change(10/23 8:20 AM CDT) No Carly Hardwick, RN Note: Problem: Chronic Pain Goals: 1. Minimize further functional decline 2. Maximize quality of life 3. Control pain Strategies: - Activity/exercise program recommendation - Conservative stepwise pain medicine strategy with multi-disciplinary approach - Recommend healthy lifestyle strategies and compensatory methods as needed documented as of this encounter Visit Diagnoses Not on filedocumented in this encounter Care Teams Car Servicer Relationship Specialty Start Date End Date Juan Borrego MD [address] [place] [address] PCP - General 01/19/11 documented as of this encounter
--- OUTSIDE RECORDS SUMMARY | 2024-05-21 06:41 | XMS_ITS | Patient Health Summary ---
Author Organization [facility] Address [address] [place] [address] Care Team Providers Care Psychological Stress Evaluator Name Role Phone Juan Borrego MD Primary Care Provider [phone] Note from [facility],non-owned Affiliates and Associated Physician Practices is amultiple site organization consisting of ambulatory clinics and hospital sitesin [place], [place], [place] and [place]. This disclosure is being madepursuant to the Care Everywhere program and may not contain all information available regarding this patient. Last updated 18.[facility] Allergies No known active allergies Medications * Be aware that medications may not be up to date on this document. Alwaysverify current medications with the patient. * metoprolol succinate XL 24hr (TOPROL XL) 50 MG tablet Take 50 mg by mouth once daily * rosuvastatin (CRESTOR) 10 MG tablet Take 10 mg by mouth once daily * escitalopram (LEXAPRO) 10 MG tablet Take 10 mg by mouth once daily * oxyCODONE-acetaminophen (PERCOCET) 5-325 MG tablet(Started 05/02/2016) Take 1 Tab by mouth every 4 hours as needed for Pain * naproxen (NAPROSYN) 500 MG tablet(Started 05/02/2016) Take 1 Tab by mouth 2 times daily as needed for Pain * aspirin EC (ECOTRIN) 325 MG tablet(Started 05/02/2016) Take 1 Tab by mouth 2 times daily * oxyCODONE-acetaminophen (PERCOCET) 10-325 MG tablet(Started 05/02/2016) Take 1 Tab by mouth every 6 hours as needed for Pain Social History Tobacco Use Types Packs/Day Years Used Date Smoking Tobacco: Never Alcohol Use Standard Drinks/Week Comments Yes 0 (1 standard drink = 0.6 oz pur e alcohol) SOCIALLY Sex and Gender Information Value Date Recorded Sex Assigned at Not on file Gender Identity Not on file Sexual Orientation Not on file Last Filed Vital Signs Vital Sign Reading Time Taken Comments Blood Pressure 100/62 05/02/2016 10:20 AM BOILER OPERATORS SUPERVISOR Pulse 61 05/02/2016 10:25 AM BOILER OPERATORS SUPERVISOR Temperature 36.3 ??C (97.4 ??F) 05/02/2016 9:21 AM CS T Respiratory Rate 15 05/02/2016 10:05 AM BOILER OPERATORS SUPERVISOR Oxygen Saturation 96% 05/02/2016 10:25 AM BOILER OPERATORS SUPERVISOR Inhaled Oxygen Concentration - - Weight 108.9 kg (240 lb) 04/28/2016 12:37 PM BOILER OPERATORS SUPERVISOR Height 165.1 cm (5' 5 ) 04/28/2016 12:37 PM BOILER OPERATORS SUPERVISOR Body Mass Index 39.94 04/28/2016 12:37 PM BOILER OPERATORS SUPERVISOR Medical Devices Implanted Type Area Entry Level Mechanical Engineer Device Identifier Shelf Expiration Date Model / Serial / Lot Graft Skn 4x4cm Allowrap 2 Lyr Epth 2 Implanted:Qty: 1 on 05/02/2016 by Julio Argueta MD at [facility] Right: Ankle [employer] [id number] / / [id number] Graft Tissue Allomend Aclr Drml Mtrx 4x4 Implanted:Qty: 1 on 05/02/2016 by Julio Argueta MD at [facility] Right: Ankle [employer] [id number] / / [id number] Procedures * ARTHROTOMY ANKLE INCLUDING EXPLORATION(Performed 05/02/2016) Performed for Sinus tarsi syndrome, right, Torn tendon * TENDON TIBIAL TRANSFER(Performed 05/02/2016) Performed for Sinus tarsi syndrome, right, Torn tendon * PERIPHERAL BLOCK(Performed 05/02/2016) * HCG URINE QUALITATIVE - POCT (IP) ASC(Performed 05/02/2016) Performed for Preop examination Results * HCG URINE QUALITATIVE - POCT (IP) ASC (05/02/2016 6:40 AM BOILER OPERATORS SUPERVISOR) HCG Qual Urine Negative Negative [facility] POCT TESTING QC Verified Yes Yes [facility] POC T TESTING Urine URINE / Unknown 05/02/2016 6 :40 AM BOILER OPERATORS SUPERVISOR Gloria Ellison MD LAB - POINT OF CARE ORDERABLES [facility] POCT TESTING [id number] [phone] Care Teams Psychological Stress Evaluator Relationship Specialty Start Date End Date Juan Borrego MD [address] [place] [address] PCP - General 11/03/21
--- OUTSIDE RECORDS SUMMARY | 2024-05-21 06:41 | XMS_ITS | Clinical Summary ---
Author Organization [facility] Address [address] [facility] [place] [address] Care Team Providers Care Hat And Cap Sewer Name Role Phone Juan Borrego MD Primary Care Provider [phone] Source Comments [facility],non-owned Affiliates and Associated Physician Practices is amultiple site organization consisting of ambulatory clinics and hospital sitesin [place], [place], [place] and [place]. This disclosure is being madepursuant to the Care Everywhere program and may not contain all information available regarding this patient. Last updated 18.[facility] [employer] [facility] Allergies No known active allergies Medications * Be aware that medications may not be up to date on this document. Alwaysverify current medications with the patient. Medication Sig Dispensed Refills Start Date End Date Status metoprolol succinate XL 24hr (TOPROL XL) 50 MG tablet Take 50 mg by mouth once daily Active rosuvastatin (CRESTOR) 10 MG tablet Take 10 mg by mouth once daily Active escitalopram (LEXAPRO) 10 MG tablet Take 10 mg by mouth once daily Active oxyCODONE-acetaminophe n (PERCOCET) 5-325 MG tablet Take 1 Tab by mouth every 4 hours as needed for Pain 30 Tab 05/02/2016 Active naproxen (NAPROSYN) 500 MG tablet Take 1 Tab by mouth 2 times daily as needed for Pain 20 Tab 05/02/2016 Active aspirin EC (ECOTRIN) 325 MG tablet Take 1 Tab by mouth 2 times daily 28 Tab 05/02/2016 Active oxyCODONE-acetaminophe n (PERCOCET) 10-325 MG tablet Take 1 Tab by mouth every 6 hours as needed for Pain 45 Tab 05/02/2016 Active Social History Tobacco Use Types Packs/Day Years [...] Comments Blood Pressure 100/62 05/02/2016 10:20 AM SENIOR TEST ANALYST Pulse 61 05/02/2016 10:25 AM SENIOR TEST ANALYST Temperature 36.3 ??C (97.4 ??F) 05/02/2016 9:21 AM CS T Respiratory Rate 15 05/02/2016 10:05 AM SENIOR TEST ANALYST Oxygen Saturation 96% 05/02/2016 10:25 AM SENIOR TEST ANALYST Inhaled Oxygen Concentration - - Weight 108.9 kg (240 lb) 04/28/2016 12:37 PM SENIOR TEST ANALYST Height 165.1 cm (5' 5 ) 04/28/2016 12:37 PM SENIOR TEST ANALYST Body Mass Index 39.94 04/28/2016 12:37 PM SENIOR TEST ANALYST Plan of Treatment Health Maintenance Due Date Last Done Comments COLOGUARD (AGES 45-75) - COL ON CA SCREENING 1966 COLON MONITORING 1966 COLONOSCOPY - COLON CA SCREENING 1966 CT COLONOGRAPHY - COLON CA SCREENING 1966 Colorectal Cancer Screening 1966 FIT - COLON CA SCREENING 1966 FLEX SIG - COLON CA SCREENING 1966 MAMMOGRAM 1966 MEDICARE AWV ? 12 MONTHS 1966 PAP SMEAR 1966 HIV SCREENING 1981 HEPATITIS C SCREENING 07/07/1984 DTAP/TDAP/TD VACCINES (1 - Tdap) 1985 HEPATITIS B VACCINE (1 of 3 - 19+ 3-dose series) 1985 PNEUMOCOCCAL VACCINE 50+ (1 of 1 - PCV) 2016 ZOSTER VACCINE (1 of 2) 2016 COVID-19 VACCINE ( - 2023-2 5 season) 2023 INFLUENZA VACCINE (#1) 2023 DEPRESSION SCREENING 04/24/2024 HIB VACCINE Aged Out No longer eligi ble based on patient's age to complete this topic HPV VACCINE Aged Out No longer eligi ble based on patient's age to complete this topic MENINGOCOCCAL (Group B) VACCINE Aged Out No longer eligible based on patient's age to complete this topic MENINGOCOCCAL VACCINE Aged Out No boyd kiera eligible based on patient's age to complete this topic PNEUMOCOCCAL VACCINE Aged Out No long er eligible based on patient's age to complete this topic Medical Devices Implanted Type Area Buffet Runner Device Identifier Shelf Expiration Date Model / Serial / Lot Graft Skn 4x4cm Allowrap 2 Lyr Epth 2 Implanted:Qty: 1 on 05/02/2016 by Julio Argueta MD at [facility] Right: Ankle [employer] [id number] / / [id number] Graft Tissue Allomend Aclr Drml Mtrx 4x4 Implanted:Qty: 1 on 05/02/2016 by Julio Argueta MD at [facility] Right: Ankle [employer] [id number] / / [id number] Care Teams Hat And Cap Sewer Relationship Specialty Start Date End Date Juan Borrego MD [address] [place] [address] [place] [address] PCP - General 11/03/21
--- OUTSIDE RECORDS SUMMARY | 2024-05-21 06:41 | XMS_ITS | Encounter Summary ---
Author Organization [facility] Healthcare Address [address] [place] [address] Care Team Providers Care Environmental Remediation Engineer Name Role Phone Juan Borrego MD Primary Care Provider Encounter Details Date Type Department Care Team (Late st Contact Info) Description 04/19/2018 Telephone [facility] [place] [facility] [address] [facility] [address] [place] [address] Yolande Fam MD PhD [address] [facility] [phone] [place], [place] [id number] Social History Tobacco Use Types Packs/Day Years Used Date Smoking Tobacco: Never Smokeless Tobacco: Never Alcohol Use Standard Drinks/Week Comments Yes 0 (1 standard drink = 0.6 oz pur e alcohol) rarely Comments No Sex and Gender Information Value Date Recorded Sex Assigned at Not on file Legal Sex Female 11:58 PM LIVESTOCK BUYER Gender Identity Not on file Sexual Orientation [...] on filedocumented in this encounter Care Teams Environmental Remediation Engineer Relationship Specialty Start Date End Date Juan Borrego MD [address] [place] [address] PCP - General 01/19/11 documented as of this encounter
--- OUTSIDE RECORDS SUMMARY | 2024-05-21 06:41 | XMS_ITS | Referral Summary ---
Author Organization [facility] Address [address] [facility] [place] [address] Care Team Providers Care Wrecking Crane Engine Operator Name Role Phone Juan Borrego MD Primary Care Provider [phone] Source Comments [facility],non-owned Affiliates and Associated Physician Practices is amultiple site organization consisting of ambulatory clinics and hospital sitesin [place], [place], [place] and [place]. This disclosure is being madepursuant to the Care Everywhere program and may not contain all information available regarding this patient. Last updated [email or web address] [facility] Allergies No known active allergies Medications * [...] Comments Blood Pressure 100/62 05/02/2016 10:[address] LIGHT WIRER Pulse 61 05/02/2016 10:[address] LIGHT WIRER Temperature 36.3 ??C (97.4 ??F) 05/02/2016 9:21 AM CS T Respiratory Rate 15 05/02/2016 10:[address] LIGHT WIRER Oxygen Saturation 96% 05/02/2016 10:[address] LIGHT WIRER Inhaled Oxygen Concentration - - Weight 108.9 kg (240 lb) 04/28/2016 12:[address] LIGHT WIRER Height 165.1 cm (5' 5 ) 04/28/2016 12:[address] LIGHT WIRER Body Mass Index 39.94 04/28/2016 12:[address] LIGHT WIRER Functional Status Functional Status Response Date of Assess ment Is person deaf or have serious hearing difficult y? No 05/02/2016 Is person blind or have serious difficulty seein g? No 05/02/2016 Does person have serious dif ficulty walking/climbing stairs? No 05/02/2016 Does person have difficulty dressing/bathing? No 05/02/2016 Does person have difficulty doing errands alone? No 05/02/2016 Cognitive Status Response Date of Assessm ent Does person have difficulty concentrating/remembering/making decisions? No 05/02/2016 Plan of Treatment Not on file Medical Devices Implanted Type Area Talent Consultant Device Identifier Shelf Expiration Date Model / Serial / Lot Graft Skn 4x4cm Allowrap 2 Lyr Epth 2 Implanted:Qty: 1 on 05/02/2016 by Julio Argueta MD at [facility] Right: Ankle [employer] [id number] / / [id number] Graft Tissue Allomend Aclr Drml Mtrx 4x4 Implanted:Qty: 1 on 05/02/2016 by Julio Argueta MD at [facility] Right: Ankle [employer] [id number] / / [id number] Care Teams Wrecking Crane Engine Operator Relationship Specialty Start Date End Date Juan Borrego MD [address] [place] [address] [place] [id number] PCP - General 11/03/21
--- OUTSIDE RECORDS SUMMARY | 2024-05-21 06:41 | XMS_ITS | Referral Summary ---
Author Organization [facility] Address [address] [place] [address] Care Team Providers Care Web Offset Press Feeder Name Role Phone Juan Borrego MD Primary Care Provider Allergies No known active allergies Medications acetaminophen (TYLENOL) 325 mg tabletIndicatio ns:Fever Take 2 tablets (650 mg total) by mouth every 4 (four) hours as needed for pain 30 tablet 11/26/2019 Active gabapentin (NEURONTIN) 300 mg capsule Take 2 capsules (600 mg total) by mouth 3 (three) times a day Take 2 capsules by mouth three times daily 180 capsule 2 01/25/2021 Active Active Problems Problem Noted Date Diagnosed Date Intervertebral disc disorder with radiculopathy of lumbar region 11/06/2019 Overview (11/06/2019): Added automatically from request for surgery [id number] Urinary incontinence without sensory awareness 0 10/24/2019 Lumbar radiculopathy - Right 09/30/2019 DDD (degenerative disc disease), lumbar 09/30/19 20 Right leg pain 08/30/2019 Depression 08/12/2019 Sacroiliac joint pain 03/15/2019 Wrist pain, acute, right 05/10/2018 Complex regional pain syndrome i of right lower limb 03/29/2018 Neuralgia 03/29/2018 Pain in both lower extremities 03/29/2018 Other chronic pain 03/29/2018 Social History Tobacco Use Types Packs/Day Years Used Date Smoking Tobacco: Never Smokeless Tobacco: Never Tobacco Cessation:Counseling Given: No Alcohol Use Standard Drinks/Week Comments Not Currently 0 (1 standard drink = 0.6 oz pur e alcohol) rarely Comments No Sex and Gender Information Value Date Recorded Sex Assigned at Not on file Legal Sex Female 11:58 PM WET PROCESS MILLER Gender Identity Not on file Sexual Orientation Not on file Last Filed Vital Signs Vital Sign Reading Time Taken Comments Blood Pressure 149/108 03/09/2020 10:29 AM WET PROCESS MILLER Pulse 103 03/09/2020 10:29 AM WET PROCESS MILLER Temperature 36.4 ??C (97.5 ??F) 11/26/2019 8:17 AM CD T Respiratory Rate 16 11/26/2019 8:17 AM CDT Oxygen Saturation 100% 11/26/2019 9:53 AM CDT Inhaled Oxygen Concentration - - Weight 105.7 kg (233 lb) 03/09/2020 10:29 AM WET PROCESS MILLER Height 162.6 cm (5' 4 ) 03/09/2020 10:29 AM WET PROCESS MILLER Body Mass Index 39.99 03/09/2020 10:29 AM WET PROCESS MILLER Plan of Treatment Not on file Goals Goal Patient Goal Type Associated Problems [...] lifestyle strategies and compensatory methods as needed Insurance [employer] ACCESS MEDICARE [facility] ACCESS MEDICARE BLUE ACCESS OOS Advance Directives For more information, please contact: [phone] * Full Code (Latest Code Status on File) Date Activated Date Inactivated Comments 11/25/2019 4:58 PM 11/26/2019 2:35 PM Care Teams Web Offset Press Feeder Relationship Specialty Start Date End Date Juan Borrego MD [address] [place] [address] [place] [address] PCP - General 01/19/11
--- OUTSIDE RECORDS SUMMARY | 2024-05-21 06:41 | XMS_ITS | Clinical Summary ---
Author Organization [facility] Address [address] [place] [address] Care Team Providers Care Water Manager Name Role Phone Juan Borrego MD Primary Care Provider [phone] Allergies No known active allergies Medications acetaminophen [...] (11/06/2019): Added automatically from request for surgery [id number] Urinary incontinence without sensory awareness 0 10/24/2019 Lumbar radiculopathy - Right 09/30/2019 DDD (degenerative disc disease), lumbar 09/30/19 20 Right leg pain 08/30/2019 Depression 08/12/2019 Sacroiliac joint pain 03/15/2019 Wrist pain, acute, right 05/10/2018 Complex regional pain syndrome i of right lower limb 03/29/2018 Neuralgia 03/29/2018 Pain in both lower extremities 03/29/2018 Other chronic pain 03/29/2018 Surgical History Surgery Date Site/Laterality Comments TONSILLECTOMY OOPHERECTOMY CHOLECYSTECTOMY HERNIA REPAIR ANKLE SURGERY BLADDER SUSPENSION APPENDECTOMY CYST REMOVAL on ovary ACHILLES TENDON REPAIR Right knee Medical History Medical History Date Comments Fatigue Weight loss Constipation Muscle pain Headache Memory loss Depression Anxiety Chronic pain Ankle pain Low back pain Family History Medical History Relation Name Comments Diabetes Father Heart disease Father Hypertension Father Heart disease Mother Relation Name Status Comments Father Mother Social History Tobacco Use Types Packs/Day Years Used Date Smoking Tobacco: Never Smokeless Tobacco: Never Tobacco Cessation:Counseling Given: No Alcohol Use Standard Drinks/Week Comments Not Currently 0 (1 standard drink = 0.6 oz pur e alcohol) rarely Comments No Sex and Gender Information Value Date Recorded Sex Assigned at Not on file Legal Sex Female 11:58 PM INSPECTOR SALVAGE Gender Identity Not on file Sexual Orientation Not on file Obstetrics History Last Filed Vital Signs Vital Sign Reading Time Taken Comments Blood Pressure 149/108 03/09/2020 10:29 AM INSPECTOR SALVAGE Pulse 103 03/09/2020 10:29 AM INSPECTOR SALVAGE Temperature 36.4 ??C (97.5 ??F) 11/26/2019 8:17 AM CD T Respiratory Rate 16 11/26/2019 8:17 AM CDT Oxygen Saturation 100% 11/26/2019 9:53 AM CDT Inhaled Oxygen Concentration - - Weight 105.7 kg (233 lb) 03/09/2020 10:29 AM INSPECTOR SALVAGE Height 162.6 cm (5' 4 ) 03/09/2020 10:29 AM INSPECTOR SALVAGE Body Mass Index 39.99 03/09/2020 10:29 AM INSPECTOR SALVAGE Plan of Treatment Not on file Goals [...] strategies and compensatory methods as needed Insurance [facility] ACCESS MEDICARE PSYCHIATRIC MEDICARE [employer] ACCESS OOS Advance Directives For more information, please contact: [phone] * Full Code (Latest Code Status on File) Date Activated Date Inactivated Comments 11/25/2019 4:58 PM 11/26/2019 2:35 PM Care Teams Water Manager Relationship Specialty Start Date End Date Juan Borrego MD [address] [place] [id number] PCP - General 01/19/11
== END 2024-05-21 06:39 | disposition home or self-care (01) ==
PROVIDERS: PCP Family Medicine; Visit Provider Orthopaedic Surgery
DX: S83.241A Other tear of medial meniscus, current injury, right knee, initial encounter (principal); M17.11 Unilateral primary osteoarthritis, right knee; M25.461 Effusion, right knee; X58.XXXA Exposure to other specified factors, initial encounter
CPT/HCPCS: 73721

== ENCOUNTER 2024-07-31 10:53 | Outpatient (CLI) | payer BC, MEDICARE, SELFPAY ==
--- NOTE | 2024-07-31 11:34 | ECG_ITS ---
Test Date: 2024-07-31 11:38:16 Measurements Intervals [place] Rate: 53 P: 2 SC: 165 QRS: -2 QRSD: 80 T: 22 QT: 381 QTc: 360 Interpretive Statements SINUS BRADYCARDIA BASELINE ARTIFACT- I, II, III, AVR BORDERLINE ECG No previous ECG available for comparison Electronically Signed On 07-31-2024 11:43:21 CDT by Omar Gonzalez D.O.
--- OUTSIDE RECORDS SUMMARY | 2024-07-31 12:44 | XMS_ITS | Referral Summary ---
Author Organization [facility] Address [address] [place] [address] Care Team Providers Care Instructor Tap Dancing Name Role Phone Juan Borrego MD Primary Care Provider [phone] Allergies No known active allergies Medications acetaminophen [...] (11/06/2019): Added automatically from request for surgery [id number] Urinary incontinence without sensory awareness 0 10/24/2019 [...] on file Legal Sex Female 11:58 PM CORPORATE GIVING MANAGER Gender Identity Not on file Sexual Orientation Not on file Last Filed Vital Signs Vital Sign Reading Time Taken Comments Blood Pressure 149/108 03/09/2020 10:29 AM CORPORATE GIVING MANAGER Pulse 103 03/09/2020 10:29 AM CORPORATE GIVING MANAGER Temperature 36.4 C (97.5 F) 11/26/2019 8:17 AM CDT Respiratory Rate 16 11/26/2019 8:17 AM CDT Oxygen Saturation 100% 11/26/2019 9:53 AM CDT Inhaled Oxygen Concentration - - Weight 105.7 kg (233 lb) 03/09/2020 10:29 AM CORPORATE GIVING MANAGER Height 162.6 cm (5' 4 ) 03/09/2020 10:29 AM CORPORATE GIVING MANAGER Body Mass Index 39.99 03/09/2020 10:29 AM CORPORATE GIVING MANAGER Plan of Treatment Not on file Goals [...] strategies and compensatory methods as needed Insurance [employer] ACCESS MEDICARE [facility] ACCESS MEDICARE BLUE ACCESS OOS Advance Directives For more information, please contact: [phone] * Full Code (Latest Code Status on File) Date Activated Date Inactivated Comments 11/25/2019 4:58 PM 11/26/2019 2:35 PM Care Teams Instructor Tap Dancing Relationship Specialty Start Date End Date Juan Borrego MD [address] [facility] [place] [address] PCP - General 01/19/11
--- OUTSIDE RECORDS SUMMARY | 2024-07-31 12:44 | XMS_ITS | Encounter Summary ---
Author Organization [facility] Healthcare Address [address] [place] [address] Care Team Providers Care Hvac/R Service Technician Name Role Phone Juan Borrego MD Primary Care Provider [phone] Encounter Details Date Type Department Care Team (Late st Contact Info) Description 04/19/2018 Telephone [facility] [address] [facility] [address] [place] [address] Yolande Fam MD PhD [address] [facility] [phone] [place], [place] [id number] Social History Tobacco Use Types Packs/Day Years Used Date Smoking Tobacco: Never Smokeless Tobacco: Never Alcohol Use Standard Drinks/Week Comments Yes 0 (1 standard drink = 0.6 oz pur e alcohol) rarely Comments No Sex and Gender Information Value Date Recorded Sex Assigned at Not on file Legal Sex Female 11:58 PM MECHANIC FIELD SERVICE Gender Identity Not on file Sexual Orientation [...] on filedocumented in this encounter Care Teams Hvac/R Service Technician Relationship Specialty Start Date End Date Juan Borrego MD [address] [place] [address] PCP - General 01/19/11 documented as of this encounter
--- OUTSIDE RECORDS SUMMARY | 2024-07-31 12:44 | XMS_ITS | Encounter Summary ---
Author Organization [facility] Healthcare Address [address] [place] [address] Care Team Providers Care Relish Maker Name Role Phone Juan Borrego MD Primary Care Provider Reason for Visit * Reason Onset Date Comments Reschedule 05/21/2018 Encounter Details Date Type Department Care Team (Late st Contact Info) Description 05/21/2018 Telephone [facility] [place] [facility] [address] [facility] [address] [place] [address] Yolande Fam MD PhD [phone] [place], [place] [id number] Reschedule Social History Tobacco Use Types Packs/Day Years Used Date Smoking Tobacco: Never Smokeless Tobacco: Never Alcohol Use Standard Drinks/Week Comments Yes 0 (1 standard drink = 0.6 oz pur e alcohol) rarely Comments No Sex and Gender Information Value Date Recorded Sex Assigned at Not on file Legal Sex Female 11:58 PM JUNIOR MANUFACTURING ENGINEER Gender Identity Not on file Sexual Orientation [...] on filedocumented in this encounter Care Teams Relish Maker Relationship Specialty Start Date End Date Juan Borrego MD [address] [place] [address] PCP - General 01/19/11 documented as of this encounter
--- OUTSIDE RECORDS SUMMARY | 2024-07-31 12:44 | XMS_ITS | Clinical Summary ---
Author Organization [facility] Address [address] [facility] [place] [address] Care Team Providers Care Back Sewer Name Role Phone Juan Borrego MD Primary Care Provider [phone] Source Comments [facility],non-owned Affiliates and Associated Physician Practices is amultiple site organization consisting of ambulatory clinics and hospital sitesin [place], [place], [place] and [place]. This disclosure is being madepursuant to the Care Everywhere program and may not contain all information available regarding this patient. Last updated 18.NUMBER26 [facility] Allergies No known active allergies Medications * [...] Comments Blood Pressure 100/62 05/02/2016 10:20 AM BARK SKINNER Pulse 61 05/02/2016 10:25 AM BARK SKINNER Temperature 36.3 C (97.4 F) 05/02/2016 9:21 AM BARK SKINNER Respiratory Rate 15 05/02/2016 10:05 AM BARK SKINNER Oxygen Saturation 96% 05/02/2016 10:25 AM BARK SKINNER Inhaled Oxygen Concentration - - Weight 108.9 kg (240 lb) 04/28/2016 12:37 PM BARK SKINNER Height 165.1 cm (5' 5 ) 04/28/2016 12:37 PM BARK SKINNER Body Mass Index 39.94 04/28/2016 12:37 PM BARK SKINNER Plan of Treatment Health Maintenance Due Date Last Done Comments COLOGUARD (AGES 45-75) - COL ON CA SCREENING 1966 COLON MONITORING 1966 COLONOSCOPY - COLON CA SCREENING 1966 CT COLONOGRAPHY - COLON CA SCREENING 1966 Colorectal Cancer Screening 1966 FIT - COLON CA SCREENING 1966 FLEX SIG - COLON CA SCREENING 1966 MAMMOGRAM 1966 MEDICARE AWV 12 MONTHS 1966 PAP SMEAR 1966 HIV SCREENING 1981 HEPATITIS C SCREENING 07/07/1984 DTAP/TDAP/TD VACCINES (1 - Tdap) 1985 HEPATITIS B VACCINE (1 of 3 - 19+ 3-dose series) 1985 PNEUMOCOCCAL VACCINE 50+ (1 of 1 - PCV) 2016 ZOSTER VACCINE (1 of 2) 2016 COVID-19 VACCINE ( - 2023-2 5 season) 2023 DEPRESSION SCREENING 04/24/2024 INFLUENZA VACCINE (Season Ended) 2024 HIB VACCINE Aged Out No longer eligi ble based on patient's age to complete this topic HPV VACCINE Aged Out No longer eligi ble based on patient's age to complete this topic MENINGOCOCCAL (Group B) VACC INE SHARED DECISION-MAKING Aged Out No longer eligibl e based on patient's age to complete this topic MENINGOCOCCAL GROUPS A/C/Y/W VACCINE Aged Out No longer eligible b ased on patient's age to complete this topic PNEUMOCOCCAL VACCINE Aged Out No long er eligible based on patient's age to complete this topic Medical Devices Implanted Type Area Block Greaser Device Identifier Shelf Expiration Date Model / Serial / Lot Graft Skn 4x4cm Allowrap 2 Lyr Epth 2 Implanted:Qty: 1 on 05/02/2016 by Julio Argueta MD at [facility] Right: Ankle [employer] [id number] / / [id number] Graft Tissue Allomend Aclr Drml Mtrx 4x4 Implanted:Qty: 1 on 05/02/2016 by Julio Argueta MD at [facility] Right: Ankle [employer] [id number] / / [id number] Care Teams Back Sewer Relationship Specialty Start Date End Date Juan Borrego MD [address] [place] [address] PCP - General 11/03/21
--- OUTSIDE RECORDS SUMMARY | 2024-07-31 12:44 | XMS_ITS | Clinical Summary ---
Author Organization [facility] Address [address] [place] [address] Care Team Providers Care Colorist Dyer Name Role Phone Juan Borrego MD Primary Care Provider [phone] Allergies No known active allergies Medications acetaminophen [...] (11/06/2019): Added automatically from request for surgery [id number] Urinary incontinence without sensory awareness 0 10/24/2019 [...] on file Legal Sex Female 11:58 PM RESIDENT ADVISOR Gender Identity Not on file Sexual Orientation Not on file Obstetrics History Last Filed Vital Signs Vital Sign Reading Time Taken Comments Blood Pressure 149/108 03/09/2020 10:29 AM RESIDENT ADVISOR Pulse 103 03/09/2020 10:29 AM RESIDENT ADVISOR Temperature 36.4 C (97.5 F) 11/26/2019 8:17 AM CDT Respiratory Rate 16 11/26/2019 8:17 AM CDT Oxygen Saturation 100% 11/26/2019 9:53 AM CDT Inhaled Oxygen Concentration - - Weight 105.7 kg (233 lb) 03/09/2020 10:29 AM RESIDENT ADVISOR Height 162.6 cm (5' 4 ) 03/09/2020 10:29 AM RESIDENT ADVISOR Body Mass Index 39.99 03/09/2020 10:29 AM RESIDENT ADVISOR Plan of Treatment Not on file Goals [...] strategies and compensatory methods as needed Insurance REPLACED BY [facility] ACCESS MEDICARE [facility] MEDICARE [employer] ACCESS OOS Advance Directives For more information, please contact: [phone] * Full Code (Latest Code Status on File) Date Activated Date Inactivated Comments 11/25/2019 4:58 PM 11/26/2019 2:35 PM Care Teams Colorist Dyer Relationship Specialty Start Date End Date Juan Borrego MD [address] [facility] [place] [id number] PCP - General 01/19/11
== END 2024-07-31 10:54 | disposition home or self-care (01) ==
LOC: ANHSURGERY 11:01
PROVIDERS: PCP Family Medicine; Visit Provider Orthopaedic Surgery
DX: I10 Essential (primary) hypertension (principal); Z01.818 Encounter for other preprocedural examination
CPT/HCPCS: 93005

== ENCOUNTER 2024-08-05 00:51 | Day surgery (SDC) | payer BC, MEDICARE, SELFPAY ==
[2024-07-30 13:13] VITALS: BMI 32.1
--- NOTE | 2024-07-30 13:15 | PC.NURSE ---
Report to the Outpatient Waiting Room, entrance under the green pavilion located off [facility], at time _0600_ on date _[id number]_. Planned Procedure Time: _0730_.? Time changes happen often and if your time is changed the preop area will call you the afternoon before. - You and your visitor will be asked to self-screen and do not enter if you have any COVID symptoms. Please call surgeon if you need to reschedule. - A mask is optional within the hospital at this time. Patients may have clear liquids (water, carbonated beverages, clear teas, apple juice) until 3 hours prior to surgery with a maximum of 20 ounces. - No food from midnight until time of surgery and no smoking, or chewing tobacco (or any form of nicotine). No chewing gum, candy or mints. Take only the following medications with a SIP of water on the morning of surgery: ___None____ DO NOT STOP ANY OF YOUR OTHER PRESCRIPTION MEDICATIONS PRIOR TO SURGERY EXCEPT THE FOLLOWING Hold all vitamins and supplements for 3 days per anesthesiologist. Medications to discontinue per physician Date to take last dose Please no make-up, nail english, hairspray, perfume, deodorant, or body powder the day of surgery.? No jewelry (including any body piercings) or valuables the day of surgery, leave them at home.? Please take a shower or bath the night before, or the morning of, surgery with an antibacterial soap.? Wear comfortable, loose fitting clothing.? - Jewelry must be removed prior to entering the operating room.? Rings and piercings that are not removed may be cut off. - The hospital will not accept responsibility for valuables.? - Please leave all valuables, including medications, at home the day of surgery. If you are going home after surgery, a licensed sanitation truck driver must drive you home.? - NO public transportation without another adult if you receive anesthesia. - We recommend that an adult stay with you for 24 hours following discharge. - We also recommend that you do not drive, make important decision, drink alcoholic beverages, or take any drugs that were not prescribed by your health care provider for at least 24 hours after your discharge time. Follow any additional instructions given to you from your surgeon. Telephone instructions given to ___Avelina__and asked if any additional questions and then verbalized understanding. Patient advised to call surgeon office or pre surgery nurse liaison [phone] if any additional questions.
--- NOTE | 2024-08-01 07:05 | PM.IMHP ---
H&P: HPI History of Present Illness Date/Time: 08/01/24 07:05 Chief Complaint: Patient has a knee pain right she has catching locking and pain that has been unresponsive to conservative treatment so far. Her MRI scan shows a meniscal tear she would like to consider arthroscopic debridement. Review of Systems Musculoskeletal: Musculoskeletal: Reports arthralgias, Reports joint swelling and Reports stiffness [facility] Past Medical History Medical History Obesity due to excess calories Insomnia Degenerative disc disease Migraine without aura, not intractable, without status migrainosus Major depressive disorder, recurrent, unspecified Essential hypertension Dyslipidemia GERD (gastroesophageal reflux disease) PTSD (post-traumatic stress disorder) Surgical History Surgical History S/P excision of lipoma suprasternal area 04/08/2016 History of back surgery R L4-5 microdiscectomy 11/25/19 H/O right knee surgery R knee arthroscopy 04/2017 H/O foot surgery History of bladder surgery urethral sling 07/2015 H/O Achilles tendon repair 05/02/16 History of removal of ovarian cyst History of appendectomy Open cholecystectomy and appendectomy 2003 History of cholecystectomy Open cholecystectomy and appendectomy 2003 History of tonsillectomy S/P hernia surgery Incisional hernia repair with mesh by Dr. Gao 04/14/09 Family History Family History Father Family history of heart disease in male family member before age 55 Diabetes mellitus Heart disease Hypertension Mother Heart disease Hypertension Grandparent Hypertension Heart disease Other Family history of cardiovascular disease Family history of malignant neoplasm Social History Social History Smoking status: Never smoker Second hand tobacco smoke exposure: Yes Alcohol intake: current Alcohol use details: Occasional Substance use: never Substance use type: does not use Do You Feel Safe in your Home?: Yes Lack of Transportation: No Lack of Food: Never True Current Housing: I Have Housing Concerned About Future Housing: No Difficulty Paying Gas/Electric Bills: No Difficulty Paying for Meds: No Currently Unemployed: No Education: High School Diploma/GED Difficulty w/ Childcare or Family Care: No Living arrangements: with family Occupation/Education: unemployed Gender identity (if verbalized by the patient): Female Sexual Orientation (if Verbalized by the Patient): Straight or Heterosexual Spiritual care concerns: No Meds Home Medications and Allergies Home Medications ?Medication ?Instructions ?Recorded ?Confirmed ?Type omeprazole 20 mg capsule,delayed See Rx Instructions .Route 07/17/23 07/30/24 Rx release .COMPLEX #90 caps rizatriptan 10 mg tablet See Rx Instructions PO .COMPLEX 12/17/23 07/30/24 Rx #10 tabs atorvastatin 20 mg tablet (Lipitor) 20 mg PO DAILY #90 tabs 02/01/24 07/30/24 Rx losartan 50 mg tablet 50 mg PO DAILY #90 tabs 02/01/24 07/30/24 Rx phentermine 37.5 mg tablet 37.5 mg PO DAILY #30 tabs 07/24/24 07/30/24 Rx Allergies Allergy/AdvReac Type Severity Reaction Status Date / Time No Known Allergies Allergy Verified 07/30/24 13:00 Exam Narrative: On exam she has tenderness medially over the joint line. She has a positive Haile's and pain to palpation manipulation. Neurologically she is grossly intact. She walks with a mildly antalgic gait. She has pain with manipulation of her knee and catching and popping. Eyes: General: appearance normal, both eyes and all related structures Neck: Neck: supple Resp: Effort & Inspection: normal respiratory effort Cardio: Rate: regular rate Rhythm: regular rhythm Radiology Reports: Comments: Magnetic Resonance Report Signed Patient: Avelina Gonzalez MRI of the right knee Clinical history: Medial meniscus tear Technique: Coronal proton density and proton density-weighted images, sagittal proton-density and T2 fat-sat images, and axial proton-density fat-saturated images were acquired. Findings: Anterior and posterior cruciate ligaments are intact. Medial collateral ligament and the lateral collateral ligament conflux are intact. Popliteus tendon is intact. No definite medial or lateral meniscal tear seen. There is intrasubstance degenerative signal in the posterior horn of the medial and lateral menisci. There is focal high-grade chondromalacia the patellar apex. There is extensive moderate to high-grade chondromalacia the femoral trochlea, especially centrally. There is high-grade chondral malacia at the medial and lateral joint lines. Mild tricompartmental osteophyte formation is present. Extensor mechanism is intact. Small joint effusion present. No Lay's cyst. Impression: Moderate tricompartmental degenerative change with small joint effusion. No definite meniscal tear seen. There is intrasubstance degenerative signal in the posterior horn of the medial and lateral menisci. Reviewed, dictated and finalized at [facility]. IBILITY SPECIALIST Abdomen X-Ray 10/13/22 Knee X-Ray 05/07/24 Knee MRI 05/21/24 Thoracic Spine X-Ray 06/08/22 Lumbar Spine X-Ray 06/08/22 Assessment and Plan Assessment and plan (1) Acute medial meniscus tear of right knee: Code(s): S83.241A - Other tear of medial meniscus, current injury, right knee, initial encounter Status: Acute Assessment and Plan: Patient is knee pain right. She has been unresponsive to conservative treatment today. Tried medicine therapy cortisone exercise and time. Unfortunately she continues to be symptomatic has catching and locking of the knee. Her MRI scan was read is not a tear by the radiologist however I thought there might be. She has failed conservative treatment will proceed to diagnostic arthroscopy if there is meniscal tear will perform a partial meniscectomy and proceed as indicated with debridement is needed. I have discussed the this with her risks benefits limitations and alternatives in detail. She understands and agrees.
[2024-08-05] VITALS (14 sets, daily range): BP systolic 99–112; BP diastolic 64–86; PULSE 59–80; RESP 12–18; TEMP 36.1–36.2; O2SAT 93–100
--- OUTSIDE RECORDS SUMMARY | 2024-08-05 00:54 | XMS_ITS | Referral Summary ---
Author Organization [facility] Address [address] [place] [address] Care Team Providers Care Automation Mechanic Name Role Phone Juan Borrego MD Primary Care Provider [phone] Allergies No known active allergies Medications acetaminophen [...] (11/06/2019): Added automatically from request for surgery [id number] Urinary incontinence without sensory awareness 0 10/24/2019 [...] on file Legal Sex Female 11:58 PM CURRENCY EXAMINER Gender Identity Not on file Sexual Orientation Not on file Last Filed Vital Signs Vital Sign Reading Time Taken Comments Blood Pressure 149/108 03/09/2020 10:29 AM CURRENCY EXAMINER Pulse 103 03/09/2020 10:29 AM CURRENCY EXAMINER Temperature 36.4 C (97.5 F) 11/26/2019 8:17 AM CDT Respiratory Rate 16 11/26/2019 8:17 AM CDT Oxygen Saturation 100% 11/26/2019 9:53 AM CDT Inhaled Oxygen Concentration - - Weight 105.7 kg (233 lb) 03/09/2020 10:29 AM CURRENCY EXAMINER Height 162.6 cm (5' 4 ) 03/09/2020 10:29 AM CURRENCY EXAMINER Body Mass Index 39.99 03/09/2020 10:29 AM CURRENCY EXAMINER Plan of Treatment Not on file Goals [...] methods as needed Insurance ANTH ACCESS MEDICARE [facility] ACCESS MEDICARE BLUE ACCESS OOS Advance Directives For more information, please contact: [phone] * Full Code (Latest Code Status on File) Date Activated Date Inactivated Comments 11/25/2019 4:58 PM 11/26/2019 2:35 PM Care Teams Automation Mechanic Relationship Specialty Start Date End Date Juan Borrego MD [address] [place] [address] PCP - General 01/19/11
--- OUTSIDE RECORDS SUMMARY | 2024-08-05 00:54 | XMS_ITS | Clinical Summary ---
Author Organization [facility] Address [address] [place] [address] Care Team Providers Care Lead Business Analyst Name Role Phone Juan Borrego MD Primary Care Provider [phone] Allergies No known active allergies Medications acetaminophen [...] (11/06/2019): Added automatically from request for surgery [id number] Urinary incontinence without sensory awareness 0 10/24/2019 [...] on file Legal Sex Female 11:58 PM READERS' ADVISORY SERVICE LIBRARIAN Gender Identity Not on file Sexual Orientation Not on file Obstetrics History Last Filed Vital Signs Vital Sign Reading Time Taken Comments Blood Pressure 149/108 03/09/2020 10:29 AM READERS' ADVISORY SERVICE LIBRARIAN Pulse 103 03/09/2020 10:29 AM READERS' ADVISORY SERVICE LIBRARIAN Temperature 36.4 C (97.5 F) 11/26/2019 8:17 AM CDT Respiratory Rate 16 11/26/2019 8:17 AM CDT Oxygen Saturation 100% 11/26/2019 9:53 AM CDT Inhaled Oxygen Concentration - - Weight 105.7 kg (233 lb) 03/09/2020 10:29 AM READERS' ADVISORY SERVICE LIBRARIAN Height 162.6 cm (5' 4 ) 03/09/2020 10:29 AM READERS' ADVISORY SERVICE LIBRARIAN Body Mass Index 39.99 03/09/2020 10:29 AM READERS' ADVISORY SERVICE LIBRARIAN Plan of Treatment Not on file Goals [...] strategies and compensatory methods as needed Insurance [facility] ACCESS MEDICARE [facility] MEDICARE [employer] ACCESS OOS Advance Directives For more information, please contact: [phone] * Full Code (Latest Code Status on File) Date Activated Date Inactivated Comments 11/25/2019 4:58 PM 11/26/2019 2:35 PM Care Teams Lead Business Analyst Relationship Specialty Start Date End Date Juan Borrego MD [address] [facility] [place] [id number] PCP - General 01/19/11
--- OUTSIDE RECORDS SUMMARY | 2024-08-05 00:54 | XMS_ITS | Encounter Summary ---
Author Organization [facility] Address [address] [place] [address] Care Team Providers Care Amphibious Operations Officer Name Role Phone Juan Borrego MD Primary Care Provider [phone] Reason for Visit * Reason Onset Date Comments Reschedule 05/21/2018 Encounter Details Date Type Department Care Team (Late st Contact Info) Description 05/21/2018 Telephone [facility] [place] [facility] [address] [facility] [address] [place] [address] Yolande Fam MD PhD [phone] [place], [place] [id number] Reschedule Social History Tobacco Use Types Packs/Day Years Used Date Smoking Tobacco: Never Smokeless Tobacco: Never Alcohol Use Standard Drinks/Week Comments Yes 0 (1 standard drink = 0.6 oz pur e alcohol) rarely Comments No Sex and Gender Information Value Date Recorded Sex Assigned at Not on file Legal Sex Female 11:58 PM HOME PERFORMANCE CONSULTANT Gender Identity Not on file Sexual Orientation [...] on filedocumented in this encounter Care Teams Amphibious Operations Officer Relationship Specialty Start Date End Date Juan Borrego MD [address] [place] [address] PCP - General 01/19/11 documented as of this encounter
--- OUTSIDE RECORDS SUMMARY | 2024-08-05 00:54 | XMS_ITS | Encounter Summary ---
Author Organization [facility] Address [address] [place] [address] Care Team Providers Care Quotation Checker Name Role Phone Juan Borrego MD Primary Care Provider [phone] Encounter Details Date Type Department Care Team (Late st Contact Info) Description 04/19/2018 Telephone [facility] [place] [facility] [address] [facility] [address] [place] [address] Yolande Fam MD PhD [address] [facility] [phone] [place], [place] [id number] Social History Tobacco Use Types Packs/Day Years Used Date Smoking Tobacco: Never Smokeless Tobacco: Never Alcohol Use Standard Drinks/Week Comments Yes 0 (1 standard drink = 0.6 oz pur e alcohol) rarely Comments No Sex and Gender Information Value Date Recorded Sex Assigned at Not on file Legal Sex Female 11:58 PM BOX CAR BRACER Gender Identity Not on file Sexual Orientation [...] on filedocumented in this encounter Care Teams Quotation Checker Relationship Specialty Start Date End Date Juan Borrego MD [address] [place] [address] PCP - General 01/19/11 documented as of this encounter
--- OUTSIDE RECORDS SUMMARY | 2024-08-05 00:54 | XMS_ITS | Clinical Summary ---
Author Organization [facility] Address [address] [facility] [place] [address] Care Team Providers Care Enterprise Architect Manager Name Role Phone Juan Borrego MD Primary Care Provider [phone] Source Comments [facility],non-owned Affiliates and Associated Physician Practices is amultiple site organization consisting of ambulatory clinics and hospital sitesin [place], [place], [place] and [place]. This disclosure is being madepursuant to the Care Everywhere program and may not contain all information available regarding this patient. Last updated 18.[employer] Effective [employer] [facility] Allergies No known active allergies Medications * Be aware that medications may not be up to date on this document. Alwaysverify current medications with the patient. metoprolol succinate XL 24hr (TOPROL XL) 50 MG tablet Take 50 mg by mouth once daily Active rosuvastatin (CRESTOR) 10 MG tablet Take 10 mg by mouth once daily Active escitalopram (LEXAPRO) 10 MG tablet Take 10 mg by mouth once daily Active oxyCODONE-acetam inophen (PERCOCET) 5-325 MG tablet Take 1 Tab by mouth every 4 hours as needed for Pain 30 Tab 05/02/2016 Active naproxen (NAPROSYN) 500 MG tablet Take 1 Tab by mouth 2 times daily as needed for Pain 20 Tab 05/02/2016 Active aspirin EC (ECOTRIN) 325 MG tablet Take 1 Tab by mouth 2 times daily 28 Tab 05/02/2016 Active oxyCODONE-acetam inophen (PERCOCET) 10-325 MG tablet Take 1 Tab by mouth every 6 hours as needed for Pain 45 Tab 05/02/2016 Active Social History Tobacco Use Types Packs/Day Years Used Date Smoking Tobacco: Never Alcohol Use Standard Drinks/Week Comments Yes 0 (1 standard drink = 0.6 oz pur e alcohol) SOCIALLY Comments No Sex and Gender Information Value Date Recorded Sex Assigned at Not on file Legal Sex Female 8:00 AM JEWELRY CASTING MODEL MAKER Gender Identity Not on file Sexual Orientation Not on file Last Filed Vital Signs Vital Sign Reading Time Taken Comments Blood Pressure 100/62 05/02/2016 10:20 AM JEWELRY CASTING MODEL MAKER Pulse 61 05/02/2016 10:25 AM JEWELRY CASTING MODEL MAKER Temperature 36.3 C (97.4 F) 05/02/2016 9:21 AM JEWELRY CASTING MODEL MAKER Respiratory Rate 15 05/02/2016 10:05 AM JEWELRY CASTING MODEL MAKER Oxygen Saturation 96% 05/02/2016 10:25 AM JEWELRY CASTING MODEL MAKER Inhaled Oxygen Concentration - - Weight 108.9 kg (240 lb) 04/28/2016 12:37 PM JEWELRY CASTING MODEL MAKER Height 165.1 cm (5' 5 ) 04/28/2016 12:37 PM JEWELRY CASTING MODEL MAKER Body Mass Index 39.94 04/28/2016 12:37 PM JEWELRY CASTING MODEL MAKER Plan of Treatment Health Maintenance Due Date [...] VACCINE (1 of 2) 2016 COVID-19 VACCINE (2023-2 5 season) 2023 DEPRESSION SCREENING 04/24/2024 INFLUENZA [...] this topic Medical Devices Implanted Type Area Managing Member Device Identifier Shelf Expiration Date Model / Serial / Lot Graft Skn 4x4cm Allowrap 2 Lyr Epth 2 Implanted:Qty: 1 on 05/02/2016 by Julio Argueta MD at [facility] Right: Ankle [employer] [id number] / / [id number] Graft Tissue Allomend Aclr Drml Mtrx 4x4 Implanted:Qty: 1 on 05/02/2016 by Julio Argueta MD at [facility] Right: Ankle [employer] [id number] / / [id number] Insurance [facility] MEDICARE Care Teams Enterprise Architect Manager Relationship Specialty Start Date End Date Juan Borrego MD [address] [place] [address] PCP - General 11/03/21
--- OUTSIDE RECORDS SUMMARY | 2024-08-05 00:55 | XMS_ITS | Continuity of Care Document ---
Author Organization [employer] [facility] Address [address] [place] [address] [address] [place] [address] Phone Care Team Providers Care Engineer Technical Staff Name Role Phone Paolo Dow PTA Unavailable Unavailable Procedures Procedure Date Therapeutic Activities Neuromuscular Re-Ed Therapeutic Activities Neuromuscular Re-Ed Therapeutic Exercise Therapeutic Activities Neuromuscular Re-Ed Therapeutic Exercise Therapeutic Activities Neuromuscular Re-Ed Therapeutic Exercise Therapeutic Activities Neuromuscular Re-Ed Therapeutic Exercise Therapeutic Activities Neuromuscular Re-Ed Therapeutic Activities Neuromuscular Re-Ed PT Evaluation Moderate Complexity Therapeutic Activities Neuromuscular Re-Ed Progress Note Therapeutic Activities Neuromuscular Re-Ed Manual Therapy Therapeutic Activities Neuromuscular Re-Ed Manual Therapy Therapeutic Activities Neuromuscular Re-Ed Manual Therapy Therapeutic Activities Neuromuscular Re-Ed Manual Therapy Progress Note Therapeutic Activities Neuromuscular Re-Ed Manual Therapy Therapeutic Activities Neuromuscular Re-Ed Manual Therapy Therapeutic Activities Neuromuscular Re-Ed Therapeutic Activities Manual Therapy Therapeutic Activities Neuromuscular Re-Ed Manual Therapy Therapeutic Activities Neuromuscular Re-Ed Manual Therapy Therapeutic Activities Neuromuscular Re-Ed Manual Therapy Therapeutic Activities Therapeutic Exercise Manual Therapy Therapeutic Activities Therapeutic Exercise Progress Note Therapeutic Activities Neuromuscular Re-Ed Therapeutic Activities Neuromuscular Re-Ed Therapeutic Exercise Manual Therapy Therapeutic Activities Neuromuscular Re-Ed Manual Therapy Neuromuscular Re-Ed Manual Therapy Therapeutic Activities Neuromuscular Re-Ed Manual Therapy Therapeutic Activities Neuromuscular Re-Ed Therapeutic Exercise Manual Therapy Manual Therapy PT Evaluation High Complexity Therapeutic Activities Neuromuscular Re-Ed Manual Therapy Progress Note Therapeutic Activities Neuromuscular Re-Ed Neuromuscular Re-Ed Therapeutic Activities Therapeutic Activities Neuromuscular Re-Ed Manual Therapy Progress Note Therapeutic Activities Therapeutic Exercise Manual Therapy Therapeutic Activities Neuromuscular Re-Ed Therapeutic Exercise Manual Therapy Hot or Cold Pack Therapeutic Exercise Manual Therapy Therapeutic Activities Neuromuscular Re-Ed Therapeutic Exercise Therapeutic Activities Neuromuscular Re-Ed Manual Therapy Therapeutic Exercise Neuromuscular Re-Ed Therapeutic Activities Manual Therapy Hot or Cold Pack Therapeutic Activities Neuromuscular Re-Ed Therapeutic Exercise Therapeutic Activities Neuromuscular Re-Ed Manual Therapy Therapeutic Activities Neuromuscular Re-Ed Manual Therapy Therapeutic Exercise PT Evaluation Moderate Complexity Therapeutic Activities Therapeutic Exercise Therapeutic Exercise Therapeutic Activities Neuromuscular Re-Ed Manual Therapy Hot or Cold Pack Electrical Stimulation Therapeutic Exercise Therapeutic Activities Neuromuscular Re-Ed Manual Therapy Hot or Cold Pack Electrical Stimulation Therapeutic Exercise Therapeutic Activities Neuromuscular Re-Ed Manual Therapy Hot or Cold Pack Electrical Stimulation Therapeutic Exercise Therapeutic Activities Neuromuscular Re-Ed Manual Therapy Hot or Cold Pack Electrical Stimulation Progress Note Therapeutic Exercise Therapeutic Activities Neuromuscular Re-Ed Manual Therapy Hot or Cold Pack Electrical Stimulation Therapeutic Exercise Therapeutic Activities Neuromuscular Re-Ed Manual Therapy Hot or Cold Pack Electrical Stimulation Progress Note Therapeutic Exercise Therapeutic Activities Neuromuscular Re-Ed Manual Therapy Hot or Cold Pack Electrical Stimulation Therapeutic Exercise Therapeutic Activities Neuromuscular Re-Ed Manual Therapy Hot or Cold Pack Electrical Stimulation Therapeutic Exercise Therapeutic Activities Neuromuscular Re-Ed Manual Therapy Hot or Cold Pack Electrical Stimulation Therapeutic Exercise Therapeutic Activities Neuromuscular Re-Ed Manual Therapy Hot or Cold Pack Electrical Stimulation Therapeutic Exercise Therapeutic Activities Neuromuscular Re-Ed Manual Therapy Hot or Cold Pack Electrical Stimulation Therapeutic Exercise Therapeutic Activities Neuromuscular Re-Ed Manual Therapy Hot or Cold Pack Electrical Stimulation Therapeutic Exercise Therapeutic Activities Neuromuscular Re-Ed Manual Therapy Hot or Cold Pack Electrical Stimulation Therapeutic Exercise THERAPEUTIC ACTIVITIES Neuromuscular Re-Ed MANUAL THERAPY Hot or Cold Pack ELECTRICAL STIMULATION PT RE-EVALUATION Therapeutic Exercise THERAPEUTIC ACTIVITIES Neuromuscular Re-Ed MANUAL THERAPY Hot or Cold Pack ELECTRICAL STIMULATION Therapeutic Exercise THERAPEUTIC ACTIVITIES Neuromuscular Re-Ed MANUAL THERAPY Therapeutic Exercise THERAPEUTIC ACTIVITIES Neuromuscular Re-Ed MANUAL THERAPY Hot or Cold Pack ELECTRICAL STIMULATION Gait Training Therapeutic Exercise THERAPEUTIC ACTIVITIES Neuromuscular Re-Ed MANUAL THERAPY Hot or Cold Pack ELECTRICAL STIMULATION Gait Training Therapeutic Exercise THERAPEUTIC ACTIVITIES Neuromuscular Re-Ed MANUAL THERAPY Hot or Cold Pack ELECTRICAL STIMULATION THERAPEUTIC EXERCISES NEUROMUSCULAR RE-ED MANUAL THERAPY FUNC ACTIVITY HOT/COLD PACK ELECTRIC STIMULATION UNATT THERAPEUTIC EXERCISES NEUROMUSCULAR RE-ED MANUAL THERAPY FUNC ACTIVITY HOT/COLD PACK ELECTRIC STIMULATION UNATT THERAPEUTIC EXERCISES NEUROMUSCULAR RE-ED MANUAL THERAPY FUNC ACTIVITY HOT/COLD PACK ELECTRIC STIMULATION UNATT THERAPEUTIC EXERCISES NEUROMUSCULAR RE-ED MANUAL THERAPY FUNC ACTIVITY HOT/COLD PACK ELECTRIC STIMULATION UNATT Progress Note THERAPEUTIC EXERCISES NEUROMUSCULAR RE-ED MANUAL THERAPY FUNC ACTIVITY HOT/COLD PACK ELECTRIC STIMULATION UNATT THERAPEUTIC EXERCISES NEUROMUSCULAR RE-ED MANUAL THERAPY FUNC ACTIVITY HOT/COLD PACK ELECTRIC STIMULATION UNATT Theratube/band THERAPEUTIC EXERCISES NEUROMUSCULAR RE-ED MANUAL THERAPY FUNC ACTIVITY HOT/COLD PACK ELECTRIC STIMULATION UNATT THERAPEUTIC EXERCISES NEUROMUSCULAR RE-ED MANUAL THERAPY FUNC ACTIVITY HOT/COLD PACK ELECTRIC STIMULATION UNATT THERAPEUTIC EXERCISES NEUROMUSCULAR RE-ED MANUAL THERAPY FUNC ACTIVITY HOT/COLD PACK ELECTRIC STIMULATION UNATT THERAPEUTIC EXERCISES NEUROMUSCULAR RE-ED MANUAL THERAPY FUNC ACTIVITY HOT/COLD PACK ELECTRIC STIMULATION UNATT THERAPEUTIC EXERCISES NEUROMUSCULAR RE-ED MANUAL THERAPY HOT/COLD PACK PT Evaluation Low Complexity THERAPEUTIC EXERCISES MANUAL THERAPY Advance Directives Directive Yes / No Effective Date File Name No Information Encounters Encounter Description Practice Location Reason(s) For Visit Diagnoses Date Provider Providers Copied on Encounter [facility], [id number], tel:[phone] [place] No Information Jun- 4- 5 Paloma Boone. . Referring Provider: Otto Eduardo, [address] [place], [address]. tel:[phone] [facility] [address] [facility] [address], [place], [place], [id number], [place] tel:[phone] [place] No Information Jun- 0-202 5 Paloma Boone. . Referring Provider: Otto Eduardo, [address] [place], [address]. tel:[phone] [facility], [place], [place], [address], [place] tel:[phone] [place] No Information Jun- 8-202 5 Paloma Boone. . Referring Provider: Otto Eduardo, [address] [place], [address]. tel:[phone] [facility] [address], [place], [place], [address], [place] tel:[phone] [place] No Information Mar-1 3-202 5 Paloma Boone. . Referring Provider: Otto Eduardo, [address], [place], [address]. tel:[phone] [facility], [address], [place], [place], [address], [place] tel:[phone] [place] No Information Mar-1 1-202 5 Paloma Boone. . Referring Provider: Otto Eduardo, [address], [place], [address]. tel:[phone] [facility], [address], [place], [place], [address], [place] tel:[phone] [place] No Information Mar-0 6-202 5 Paloma Boone. . Referring Provider: Otto Eduardo, [address], [place], [address]. tel:[phone] [facility], [place], [place], [address], [place] tel:[phone] [place] No Information Mar-0 4- 5 Paloma Boone. . Referring Provider: Otto Eduardo, [address], [place], [address]. tel:[phone] [facility], [place], [place], [address], [place] tel:[phone] [place] No Information 5 Mary Kate Painting. . Referring Provider: Otto Eduardo, [address], [place], [address]. tel:[phone] [facility], [place], [address], [place] tel:[phone] [place] No Information 3 Della Justice. . Referring Provider: Julio Chatman, [address], [place], [address]. tel:[phone] [facility], [address], [place], [place], [address], [place] tel:[phone] [place] No Information Chong-0 5-202 3 [place] Isi. . Referring Provider: Julio Chatman, [address], [place], [address]. tel:[phone] [facility], [address], [place], [place], [address], [place] tel:[phone] [place] No Information Roberto-3 0-202 3 [place] Isi. . Referring Provider: Julio Chatman, [address], [place], [address]. tel:[phone] [facility], [address], [place], [place], [address], [place] tel:[phone] [place] No Information Roberto-2 7-202 3 [place] Isi. . Referring Provider: Julio Chatman, [address], [place], [address]. tel:[phone] [facility], [address], [place], [place], [address], [place] tel:[phone] [place] No Information Roberto-2 3-202 3 Della Reshma. . Referring Provider: Julio Chatman, [address], [place], [address]. tel:[phone] [facility], [address], [place], [place], [address], [place] tel:[phone] [place] No Information Roberto-2 1-202 3 Della Reshma. . Referring Provider: Julio Chatman, [address], [place], [address]. tel:[phone] [facility], [address], [place], [place], [address], [place] tel:[phone] [place] No Information Roberto-1 - 3 Della Reshma. . Referring Provider: Julio Chatman, [address], [place], [address]. tel:[phone] [facility], [address], [place], [place], [address], [place] tel:[phone] [place] No Information Roberto-1 6- 3 [place] Isi. . Referring Provider: Julio Chatman, [address], [place], [address]. tel:[phone] [facility], [address], [place], [place], [address], tel:[phone] [place] No Information Roberto-1 - 3 [place] Isi. . Referring Provider: Julio Chatman, [address], [place], [address]. tel:[phone] [facility], [address], [place], [place], [address], [place] tel:[phone] [place] No Information Roberto-1 2 3 Della Reshma. . Referring Provider: Julio Chatman, [address], [place], [address]. tel:[phone] [facility], [address], [place], [place], [address], [place] tel:[phone] [place] No Information Roberto-0 3 Della Reshma. . Referring Provider: Julio Chatman, [address], [place], [address]. tel:[phone] [facility], [address], [place], [place], [address], [place] tel:[phone] [place] No Information Roberto-0 3 Della Reshma. . Referring Provider: Julio Chatman, [address], [place], [address]. tel:[phone] [facility] [address] [place], [place] [address], [place], [place], [id number], tel:[phone] [place] No Information Roberto-0 - 3 Della Reshma. . Referring Provider: Julio Chatman, [address], [place], [address]. tel:[phone] [facility], [address] [place], [place] [address], [place], [place], [address], [place] tel:[phone] [place] No Information Roberto-0 - 3 Della Reshma. . Referring Provider: Julio Chatman, [address], [place], [address]. tel:[phone] [facility] [address] [place], [place] [address], [place], [place], [address], [place] tel:[phone] [place] No Information May-3 0-202 3 Walker Bassem. . Referring Provider: Julio Chatman, [address], [place], [address]. tel:[phone] [facility] [address] [place], [place] [address], [place], [place], [address], [place] tel:[phone] [place] No Information May-2 5- 3 Modglin Darío. . Referring Provider: Julio Chatman, [address], [place], [address]. tel:[phone] [facility] [address] [facility], [place], [place], [address], [place] tel:[phone] [place] No Information May-2 3-202 3 Modglin Darío. . Referring Provider: Julio Chatman, [address], [place], [address]. tel:[phone] [facility], [address], [place], [place], [address], [place] tel:[phone] [place] No Information 3 Walker Bassem. . Referring Provider: Julio Chatman, [address], [place], [address]. tel:[phone] [facility], [address], [place], [place], [address], [place] tel:[phone] [place] No Information 3 Walker Bassem. . Referring Provider: Julio Chatman, [facility] [address], [place], [address]. tel:[phone] [facility], [address], [place], [place], [address], [place] tel:[phone] [place] No Information 3 Modglin Darío. . Referring Provider: Julio Chatman, [facility], [facility] [address], [place], [address]. tel:[phone] [facility], [address], [place], [place], [address], [place] tel:[phone] [place] No Information 3 Modglin Darío. . Referring Provider: Julio Chatman, [facility], [facility] [address] , [place], [address]. tel:[phone] [facility], [place], [place], [address], [place] tel:[phone] [place] No Information Nov-1 2-202 0 Enriqueta Mckeon. . Referring Provider: Dino Mckeon, [address] [place] [address] [address], [place], [address]. tel:[phone] [facility], [address], [place], [place], [address], [place] tel:[phone] [place] No Information Nov-1 0-202 0 Schniers Mike. . Referring Provider: Dino Mckeon [facility] [address], [place], [address]. tel:[phone] [place] [address], [address] [facility] 300, [place], [place], [address], tel:[phone] [place] No Information Nov-0 5-202 0 Schniers Mike. . Referring Provider: Dino Mckeon [facility] [address], [place], [address]. tel:[phone] [place] [address] [place] [address], [place], [address], [place] tel:[phone] [place] No Information Nov-0 3-202 0 Schniers Mike. . Referring Provider: Dino Mckeon [facility] [address], [place], [address]. tel:[phone] [place] [address], [address] [facility] 300, [place], [place], [address], [place] tel:[phone] [place] No Information Oct-2 9-202 0 Schniers Mike. . Referring Provider: Dino Mckeon [facility] [address], [place], [address]. tel:[phone] [place] [address] [address] [address], [place], [place], [address], [place] tel:[phone] [place] No Information Oct-2 7-202 0 Schniers Mike. . Referring Provider: Dino Mckeon [facility] [address], [place], [address]. tel:[phone] [facility] [facility] [address], [place], [place], [address], [place] tel:[phone] [place] No Information Oct-2 2-202 0 Schniers Mike. . Referring Provider: Dino Mckeon [facility] [address], [place], [address]. tel:[phone] [place] [address] [address] [facility] [address], [place], [place], [address], [place] tel:[phone] [place] No Information Oct-2 0-202 0 Schniers Mike. . Referring Provider: Dino Mckeon, [address] [place] [address] [address], [place], [address]. tel:[phone] [place] [address] [address] [facility], [place], [address], [place] tel:[phone] [place] No Information Oct-1 5-202 0 Schniers Mike. . Referring Provider: Dino Mckeon, [address] [place] [address], [place], [address]. tel:[phone] [place] [address] [place] [address], [place], [place], [address], [place] tel:[phone] [place] No Information Oct-0 8-202 0 Schniers Mike. . Referring Provider: Dino Mckeon, [address] [place] [address], [place], [address]. tel:[phone] [place] [address] [address] [facility] [address], [place], [place], [address], [place] tel:[phone] [place] No Information Oct-0 6-202 0 Schniers Mike. . Referring Provider: Dino Mckeon [facility] [address], [place], [address]. tel:[phone] [place] [address] [address] [facility] [address], [place], [place], [address], [place] tel:[phone] [place] No Information Sep-2 9-202 0 Schniers Mike. . Referring Provider: Dino Mckeon [address] [place] [address] [address], [place], [address]. tel:[phone] [facility], [place], [place], [address], [place] tel:[phone] [place] No Information 0 Enriqueta Mckeon. . Referring Provider: Dino Mckeon, [address] [facility] [address], [place], [address]. tel:[phone] [facility], [address] [facility] [address], [place], [place], [address], tel:[phone] [place] No Information 7 Muehl Andreas. [address] [facility], [address], [place], [facility], [place]. tel:[phone] Referring Provider: Julio Chatman, [address], [place], [address]. tel:[phone] [facility] [address] [place], [place] [address], [place], [place], [address], [place] tel:[phone] [place] No Information 7 Muehl Andreas. [address] [place] [address], [address], [place], [facility], [place]. tel:[phone] Referring Provider: Julio Chatman, [address], [place], [address]. tel:[phone] [facility] [address] [place], [place] [address], [place], [place], [address], [place] tel:[phone] [place] No Information 7 Muehl Andreas. [address] [facility], [address], [place], [address], [place]. tel:[phone] Referring Provider: Julio Chatman, [address], [place], [address]. tel:[phone] [facility], [address], [place], [place], [address], [place] tel:[phone] [place] No Information 8201 7 Muehl Andreas. [address] [facility], [address], [place], [facility], . tel:[phone] Referring Provider: Julio Chatman, [address], [place], [address]. tel:[phone], [id number], tel:[phone] [place] No Information Roberto-2 3-201 7 Muehl Andreas. [address] [place] [address], [address], [place], [place], [facility], . tel:[phone] Referring Provider: Julio Chatman, [address], [place], [address]. tel:[phone], [id number], tel:[phone] [place] No Information Roberto-0 1-201 7 Muehl Andreas. [address] [place] [address], [facility] [address], [place], [facility], . tel:[phone] Referring Provider: Julio Chatman, [address], [place], [address]. tel:[phone], [id number], tel:[phone] [place] No Information August-2 6-201 7 Muehl Andreas. [address] [place] [address], [facility] [address], [place], [facility], . tel:[phone] Referring Provider: Julio Chatman, [address], [place], [address]. tel:[phone], [id number], tel:[phone] [place] No Information August-2 4-201 7 Muehl Andreas. [address] [place] [address], [facility] [address], [place], [facility], . tel:[phone] Referring Provider: Julio Chatman, [address], [place], [address]. tel:[phone] [address] [place] [address], [id number], tel:[phone] [place] No Information August-1 9-201 7 Muehl Andreas. [address] [place] [address], [address], [place], [facility], . tel:[phone] Referring Provider: Julio Chatman, [address] , [place], [address]. tel:[phone], [id number], tel:[phone] [place] No Information August-1 5-201 7 Muehl Andreas. [address] [place] [address], [address], [place], [facility], . tel:[phone] Referring Provider: Julio Chatman, [address] , [place], [address]. tel:[phone], [id number], tel:[phone] [place] No Information August-1 2-201 7 Muehl Andreas. [address] [place] [address], [address], [place], [facility], . tel:[phone] Referring Provider: Julio Chatman, [address] , [place], [address]. tel:[phone], [id number], tel:[phone] [place] No Information May-0 8-201 7 Muehl Andreas. [address] [place] [address], [address], [place], [facility], . tel:[phone] Referring Provider: Julio Chatman, [address] , [place], [address]. tel:[phone] [address], [place], [place], [address], [place] tel:[phone] [place] No Information May-0 5-201 7 Muehl Andreas. [address] [place] [address], [address], [place], [facility], . tel:[phone] Referring Provider: Julio Chatman, [address], [place], [address]. tel:[phone] [address], [place], [place], [address], tel:[phone] [place] No Information May-0 1-201 7 Muehl Andreas. [address] [place] [address], [address], [place], [facility], . tel:[phone] Referring Provider: Julio Chatman, [address], [place], [address]. tel:[phone] [address], [place], [place], [address], [place] tel:[phone] [place] No Information Apr-2 8-201 7 Muehl Andreas. [address] [place] [address], [address], [place], [facility], [place]. tel:[phone] Referring Provider: Julio Chatman, [address], [place], [address]. tel:[phone] [address], [place], [place], [address], [place] tel:[phone] [place] No Information Apr-2 6-201 7 Muehl Andreas. [address] [place] [address], [address], [place], [facility], [place]. tel:[phone] Referring Provider: Julio Chatman, [address], [place], [address]. tel:[phone] [address], [place], [place], [address], tel:[phone] [place] No Information Jul-2 5-201 7 Muehl Andreas. [address] [facility], [address], [place], [facility], . tel:[phone] Referring Provider: Julio Chatman, [address] , [place], [address]. tel:[phone] [address], [place], [place], [address], tel:[phone] [place] No Information Jul-2 1-201 7 Muehl Andreas. [address] [facility], [address], [place], [facility], . tel:[phone] Referring Provider: Julio Chatman, [address] , [place], [address]. tel:[phone] [address] [facility], [place], [place], [id number], tel:[phone] [place] No Information Apr-2 0-201 7 Muehl Andreas. [address] [facility], [address], [place], [facility], [place]. tel:[phone] Referring Provider: Julio Chatman, [address] , [place], [address]. tel:[phone] [address] [place] [address], [id number], [place] tel:[phone] [place] No Information Jul-1 7-201 7 Muehl Andreas. [address] [facility], [address], [place], [facility], [place]. tel:[phone] Referring Provider: Julio Chatman, [address] , [place], [address]. tel:[phone] [address], [place], [id number], tel:[phone] [place] No Information Apr-1 4-201 7 Muehl Andreas. [address] [facility], [address], [place], [place], [facility], . tel:[phone] Referring Provider: Julio Chatman, [address] [place], [place] [address]s [facility], [place], [address]. tel:[phone], [id number], tel:[phone] [place] No Information Apr-1 2-201 7 Mary Kate Gardner . Referring Provider: Julio Chatman, [address] [place] [address], [place], [address]. tel:[phone], [id number], tel:[phone] [place] No Information Apr-1 0-201 7 Muehl Andreas. [address] [place] [address], [address], [place], [facility], [place]. tel:[phone] Referring Provider: Julio Chatman, [address] [place] [address], [place], [address]. tel:[phone], [id number], tel:[phone] [place] No Information Apr-0 5-201 7 Muehl Andreas. [address] [facility], [address], [place], [facility], [place]. tel:[phone] Referring Provider: Julio Chatman, [address] [place] [address], [place], [address]. tel:[phone], [id number], tel:[phone] [place] No Information Apr-0 3-201 7 Muehl Andreas. [address] [facility], [address], [place], [place], [facility], [place]. tel:[phone] Referring Provider: Julio Chatman, [address], [place], [address]. tel:[phone] [address], [place], [place], [id number], tel:[phone] [place] No Information Mar-3 1-201 7 Muehl Andreas. [address] [place] [address], [address], [place], [facility], . tel:[phone] Referring Provider: Julio Chatman, [address], [place], [address]. tel:[phone] [facility], [place], [place], [id number], [place] tel:[phone] [place] No Information Mar-2 9-201 7 Muehl Andreas. [address] [place] [address], [address], [place], [facility], [place]. tel:[phone] Referring Provider: Julio Chatman, [address], [place], [address]. tel:[phone] [address] [facility], [place], [place], [id number], [place] tel:[phone] [place] No Information Mar-2 7-201 7 Muehl Andreas. [address] [place] [address], [address], [place], [facility], [place]. tel:[phone] Referring Provider: Julio Chatman, [address], [place], [address]. tel:[phone] [address], [place], [id number], [place] tel:[phone] [place] No Information Mar-2 4-201 7 Muehl Andreas. [address] [place] [address], [address], [place], [facility], [place]. tel:[phone] Referring Provider: Julio Chatman, [address], [place], [address]. tel:[phone] [address], [place], [place], [id number], tel:[phone] [place] No Information Jun- 7 Sameertasneemjamir Johns. [address] [place] [address], [address], [facility], . tel:[phone] Referring Provider: Julio Chatman, [address], [place], [address]. tel:[phone], [place], [place], [id number], tel:[phone] [place] Pain in right ankle and joints of right footStiffness of right ankle, not elsewhere classifiedOth symptoms and signs involving the musculoskelet al systemEffusio n, right ankleUnspecif ied abnormalities of gait and mobility 7 Pancho Johns. [address] [place] [address], [facility] [address], [place], [facility], . tel:[phone] Referring Provider: Julio Chatman, [address], [place], [address]. tel:[phone] Family History Family Member Type Diagnosis Age At Onset No Information Payers Payer name Insurance type Covered republican ID Authorbabita ayala(s) [facility] [id number] Medicare [place] [id number] Social History Type Description Quantity Date Captured Comments Sex Female Smoking Status No Information Chief Complaint And Reason For Visit No Information Reason For Referral Reason For Referral No Information Plan Of Treatment Date Type Action Status Referral Ordered: Referrals: Specialist. Evaluate and Treat (related to Adjustment disorder with depressed mood) ordered Referral Ordered: Depression: Depression management program timeframe: 1 Day. (related to Depression) ordered Referral Ordered: Clinical Psychology (related to Depression) ordered Referral Ordered: Referrals: Specialist. Evaluate and Treat (related to Adjustment disorder with depressed mood) ordered Referral Ordered: Referrals: Specialist. Evaluate and Treat (related to F43.21) ordered Referral Ordered: Clinical Psychology (related to Depression) ordered History Of Present Illness Encounter Date Complaint History Of Prese nt Illness No Information Functional Status Date Functional Assessmen t No Information Instructions Date Instruction Additional Infor ya Giving encouragement to exercise Related to Overweight Giving encouragement to exercise Related to Overweight Dietary needs education Related to Overweight Assessments Type Assessment Date No Information Patient Care Teams Name Effective Dates (start - stop) Status Members No Information
[2024-08-05] MEDS: ACETAMINOPHEN 500 MG TABLET 1000 MG PO (06:50)
[2024-08-05] MEDS: LACTATED RINGERS 1,000 ML 30 ML IV CONT ×2 (06:50→08:40)
[2024-08-05] MEDS: KETOROLAC 15 MG/ML VIAL (*BKC) IV PUSH (06:50)
--- NOTE | 2024-08-05 06:50 | WPDHPUPDATE1 ---
History and Physical Update Update Date/Time: 08/05/24 06:50 History and Physical has been reviewed, including an updated exam of the patient. There are NO changes in the patient's condition. Risks, benefits, and alternatives have been discussed and questions answered. Patient agrees to proceed with procedure. We reviewd the MRI report again. She realizes that there is a possibility of a tear not being found. Discussed.
--- NOTE | 2024-08-05 06:55 | P.PNAN_ITS ---
Anes - Initial Pre Proc Eval Procedure: Operation Date: 08/05/24 07:30 Proposed Procedures p Right Knee Arthroscopy with Partial Medial Meniscectomy, Proceed As Indicated - Otto Eduardo MD Date/Time: 08/05/24 06:55 Surgeon: Otto Eduardo MD Pre Op Diagnosis: Right Medial Meniscal Tear Patient Data Age: 59 Gender: F Height: 1.64 m Weight: 86.4 kg Allergies Allergy/AdvReac Type Severity Reaction Status Date / Time No Known Allergies Allergy Verified 07/30/24 13:00 Home Medications ?Medication ?Instructions ?Recorded ?Confirmed ?Type omeprazole 20 mg capsule,delayed See Rx Instructions .Route 07/17/23 07/30/24 Rx release .COMPLEX #90 caps rizatriptan 10 mg tablet See Rx Instructions PO .COMPLEX 12/17/23 07/30/24 Rx #10 tabs atorvastatin 20 mg tablet (Lipitor) 20 mg PO DAILY #90 tabs 02/01/24 07/30/24 Rx losartan 50 mg tablet 50 mg PO DAILY #90 tabs 02/01/24 07/30/24 Rx phentermine 37.5 mg tablet 37.5 mg PO DAILY #30 tabs 07/24/24 07/30/24 Rx Patient hx anesthesia problems: none Family hx anesthesia problems: none Results Review: All pre-operative results and documents have been reviewed as part of the pre- operative evaluation. [facility] Past Medical History Medical History Obesity due to excess calories Insomnia Degenerative disc disease Migraine without aura, not intractable, without status migrainosus Major depressive disorder, recurrent, unspecified Essential hypertension Dyslipidemia GERD (gastroesophageal reflux disease) PTSD (post-traumatic stress disorder) Surgical History Surgical History S/P excision of lipoma suprasternal area 04/08/2016 History of back surgery R L4-5 microdiscectomy 11/25/19 H/O right knee surgery R knee arthroscopy 04/2017 H/O foot surgery History of bladder surgery urethral sling 07/2015 H/O Achilles tendon repair 05/02/16 History of removal of ovarian cyst History of appendectomy Open cholecystectomy and appendectomy 2003 History of cholecystectomy Open cholecystectomy and appendectomy 2003 History of tonsillectomy S/P hernia surgery Incisional hernia repair with mesh by Dr. Gao 04/14/09 Family History Family History Father Family history of heart disease in male family member before age 55 Diabetes mellitus Heart disease Hypertension Mother Heart disease Hypertension Grandparent Hypertension Heart disease Other Family history of cardiovascular disease Family history of malignant neoplasm Social History Social History Smoking status: Never smoker Second hand tobacco smoke exposure: Yes Alcohol intake: current Alcohol use details: Occasional Substance use: never Substance use type: does not use Do You Feel Safe in your Home?: Yes Lack of Transportation: No Lack of Food: Never True Current Housing: I Have Housing Concerned About Future Housing: No Difficulty Paying Gas/Electric Bills: No Difficulty Paying for Meds: No Currently Unemployed: No Education: High School Diploma/GED Difficulty w/ Childcare or Family Care: No Living arrangements: with family Occupation/Education: unemployed Gender identity (if verbalized by the patient): Female Sexual Orientation (if Verbalized by the Patient): Straight or Heterosexual Spiritual care concerns: No Anes - Eval Final PreProcedure Day of Procedure 08/05/24 06:55 Patient weight: obese Heart: regular rate and rhythm Lungs: clear to auscultation Airway: Mallampati scale class II Neurological: alert and oriented Last oral intake: >/= 8 hours ASA classification: III Emergent: no Anesthetic plan: proceed Anesthesia type and monitoring: general LMA and standard monitoring Results Review: All pre-operative results and documents have been reviewed as part of the pre- operative evaluation. Informed Consent: The patient's anesthetic plan and its attendant risks and benefits were discussed with the patient/family/POA. Questions were solicited and answers provided to the satisfaction of the patient/family/POA.
[2024-08-05] MEDS: ceFAZolin 2 GM/D5W 50 ML 2 GM/50 ML BAG IVPB (07:28)
[2024-08-05] MEDS: LIDO 1%/EPINEPHRINE 1:100,000 50 ML VIAL 30 ML INFILTRATE (07:44)
--- NOTE | 2024-08-05 08:01 | P.OP_ITS ---
Procedure Note - Detailed Date of Procedure 08/05/24 Pre-op Diagnosis Right Medial Meniscal Tear Post-op Diagnosis Other Procedure Performed 1) Partial lateral meniscectomy with debridement chondromalacia. 2) Chondroplasty medially. Surgeon Otto Eduardo MD Anesthesia General Indications Pain and catching Findings Lateral meniscal tear the chondromalacia laterally. Significant chondromalacia medially. Description of Procedure Patient brought to operating room number #7. A general anesthetic was administered. She was sterilely prepped and draped in usual manner. Superomedial portal used for the outflow cannula on the right knee. Inferolateral portal for the scope. Inferomedial portal for the instruments. Diagnostic arthroscopy performed. Patellofemoral joint showed grade 3 changes with a large plica. The plica was debrided and removed with no further catching on the condyle. I then proceeded medially into the joint and she had significant chondromalacia. She had delaminated much of the femur. A chondroplasty was performed, and an awl was used to broach the cortex and hopefully induce cartilaginous on growth. The bone was soft as the awl was easily pushed in by hand. Laterally she had tearing of the lateral meniscus. And moderate chondromalacia. This is debrided with shaver back to a stable base. At this point the remainder of the knee looks stable. He has returned d rawn 3 sutures placed lidocaine injected patient tolerated procedure well. Complications No immediate complications Condition Stable Disposition PACU [facility] Billing Surgery - Charge Forward: Surgery Billing ([id number] Scope partial. I don't think I can bill for chondroplasty)
[2024-08-05] MEDS: fentaNYL CITRATE INJ (*CRX) 100 MCG/2 ML VIAL 25 MCG IV PUSH ×8 (08:30→10:12)
[2024-08-05] MEDS: MIDAZOLAM HCL (*CRX) 2 MG/2 ML VIAL 1 MG IV PUSH (08:49)
--- NOTE | 2024-08-05 09:35 | SUR.PHASEI ---
0935- Call to Dr. Duncan to notify of patient's mid chest pain. VS remain stable- 1MG versed given see MAR and Fentanyl 125MCG. Patient states it feels as if someone punched her chest and feels more painful upon inspiration. Patient denying trouble breathing, jaw pain or pain to arms. Received orders for STAT EKG and to apply oxygen to patient at this time. 0942- Dr. Duncan to bedside to assess patient. 0950- Cardiology at bedside for EKG.
--- NOTE | 2024-08-05 09:39 | ECG_ITS ---
Test Date: 2024-08-05 09:50:15 Measurements Intervals [place] Rate: 61 P: 10 [place]: 161 QRS: 5 QRSD: 82 T: 10 QT: 442 QTc: 448 Interpretive Statements SINUS RHYTHM NORMAL ECG Compared to ECG 07/31/2024 11:38:16 HEART RATE HAS INCREASED Electronically Signed On 08-05-2024 09:55:10 CDT by Omar Gonzalez D.O.
[2024-08-05] MEDS: oxyCODONE HCL (*CRX) 5 MG TAB IR PO (10:48)
== END 2024-08-05 11:30 | disposition home or self-care (01) ==
PROVIDERS: PCP Family Medicine; Visit Provider Orthopaedic Surgery
PROC: (CPT 29870; principal; 2024-08-05 07:30)
DX: M23.300 Other meniscus derangements, unspecified lateral meniscus, right knee (principal); M22.41 Chondromalacia patellae, right knee; E66.9 Obesity, unspecified; Z68.32 Body mass index [BMI] 32.0-32.9, adult
CPT/HCPCS: 29881; 93005; A9270; J0690; J1100; J1885; J2004; J2250; J2405; J2704; J3010; J7120

== ENCOUNTER 2024-10-31 13:33 | Outpatient (CLI) | payer BC, MEDICARE, SELFPAY ==
--- NOTE | ~2024-10-31 | MM_ITS ---
EXAMINATION: MM screening pk BI w kaz HISTORY: Screening mammogram TECHNIQUE: Craniocaudal and mediolateral oblique 3-D tomosynthesis images were obtained and synthetic 2-D images were generated. CAD analysis was submitted and interpreted. COMPARISON: 08/01/2023, 04/04/2022 BREAST PARENCHYMAL COMPOSITION:Not Dense. There are scattered areas of fibroglandular density. FINDINGS: No suspicious mass, calcification, or architectural distortion are identified in either marisol ast to suggest malignancy. There has been no suspicious interval change. IMPRESSION: No mammographic evidence of malignancy. Recommend routine screening mammography in one year. BI-RADS Category 1: Negative Reviewed, dictated and finalized at location .
== END 2024-10-31 13:34 | disposition home or self-care (01) ==
LOC: MICIMG 13:34
PROVIDERS: PCP Family Medicine; Visit Provider Family Medicine
DX: Z12.31 Encounter for screening mammogram for malignant neoplasm of breast (principal)
CPT/HCPCS: 77063; 77067

== ENCOUNTER 2024-12-13 16:47 | Emergency (ER) | payer BC, MEDICARE, SELFPAY ==
--- NOTE | ~2024-12-13 | XR_ITS ---
XR finger 3rd RT min 2V 12/13/2024 17:25 Indication: Right third finger pain and swelling Procedure: 3 views right third finger Comparison: No prior studies for comparison. Findings: There is anatomic alignment. No fracture, subluxation or dislocation. No soft tissue abnormality. No foreign bodies. Impression: 1: No acute bone or joint abnormality. Reviewed, dictated and finalized at location O. Impression: 1: No acute bone or joint abnormality.
[2024-12-13 16:55] VITALS: BP 118/78; PULSE 96; RESP 20; TEMP 37.3; O2SAT 96
--- NOTE | 2024-12-13 17:05 | ED.EXTPRO ---
HPI - Extremity Problem General Chief complaint: Extremity Problem,Nontraumatic Stated complaint: swollen finger Time Seen by Provider: 12/13/24 17:05 Source: patient, RN notes reviewed and old records reviewed Mode of arrival: ambulatory Limitations: no limitations History of Present Illness HPI Narrative: 59-year-old female presents to the [facility] with her right 3rd finger dorsal aspect distal, pink, not warm, mild swelling is noted. Decreased range of motion secondary to swelling and pain. Patient sensation intact Patient's capillary refill under 2 seconds Related Data Allergies Allergy/AdvReac Type Severity Reaction Status Date / Time No Known Allergies Allergy Verified 12/13/24 17:05 Review of Systems Review of Systems: All systems reviewed & are unremarkable except as noted in HPI and below Constitutional: Constitutional: Reports no additional constitutional complaints Musculoskeletal: Musculoskeletal: Reports as per HPI, Reports arthralgias and Reports joint swelling Integumentary/Breasts: Skin/Breast: Reports system reviewed and no additional complaints, except as docu PMFSH Past Medical History Medical History Obesity due to excess calories Insomnia Degenerative disc disease Migraine without aura, not intractable, without status migrainosus Major depressive disorder, recurrent, unspecified Essential hypertension Dyslipidemia GERD (gastroesophageal reflux disease) PTSD (post-traumatic stress disorder) Surgical History Surgical History S/P excision of lipoma suprasternal area 04/08/2016 History of back surgery R L4-5 microdiscectomy 11/25/19 H/O right knee surgery R knee arthroscopy 04/2017 H/O foot surgery History of bladder surgery urethral sling 07/2015 H/O Achilles tendon repair 05/02/16 History of removal of ovarian cyst History of appendectomy Open cholecystectomy and appendectomy 2003 History of cholecystectomy Open cholecystectomy and appendectomy 2003 History of tonsillectomy S/P hernia surgery Incisional hernia repair with mesh by Dr. Gao 04/14/09 Family History Family History Father Family history of heart disease in male family member before age 55 Diabetes mellitus Heart disease Hypertension Mother Heart disease Hypertension Grandparent Hypertension Heart disease Other Family history of cardiovascular disease Family history of malignant neoplasm Social History Social History Smoking status: Never smoker Second hand tobacco smoke exposure: Yes Alcohol intake: current Alcohol use details: Occasional Substance use: never Substance use type: does not use Do You Feel Safe in your Home?: Yes Lack of Transportation: No Lack of Food: Never True Current Housing: I Have Housing Concerned About Future Housing: No Difficulty Paying Gas/Electric Bills: No Difficulty Paying for Meds: No Currently Unemployed: No Education: High School Diploma/GED Difficulty w/ Childcare or Family Care: No Living arrangements: with family Occupation/Education: unemployed Gender identity (if verbalized by the patient): Female Sexual Orientation (if Verbalized by the Patient): Straight or Heterosexual Spiritual care concerns: No Comments At the time of my signature, I reviewed and agree with the nursing past medical, surgical, social, and family history. There is no relevant family history pertinent to the patient complaint. Exam Const: General: cooperative, healthy appearing, comfortable, no acute distress, well developed, alert and well nourished Nutritional Appearance: well nourished Orientation/consciousness: patient oriented x3 Limitations: no limitations HENMT: Head: normal to inspection Eyes: General: appearance normal, both eyes and all related structures Alignment and Position: alignment normal Neck: Neck: normal visual inspection, full ROM, no lymphadenopathy and no meningeal signs Chest: Chest palpation & inspection: normal inspection of the chest Resp: Effort & Inspection: normal respiratory effort and able to speak in complete sentences Cardio: Rate: regular rate Skin: General skin exam: normal color and no rashes or lesions noted Neuro: General: patient oriented x3, gait normal, moves all extremities and no meningeal signs Cognition (Neuro): normal cognition Speech: normal speech Gait exam (Neuro): Normal gait present Extrem: General: normal to inspection, full ROM, capillary refill normal and normal gait Right upper extremity: Extremity exam: right hand normal capillary refill, tendon exam normal of the 2nd digit, of the 3rd digit, of the 4th digit and of the 5th digit, vascular exam radial pulse present and normal capillary refill and swelling of the 3rd digit at the DIP joint and on the dorsal aspect Psych: Appearance: grossly normal and well kempt Mental Status: mental status grossly normal Speech and movement: Normal speech and movement present and Clear speech present Affect: normal affect Attitude: cooperative Course Course Level of Care: Express Care Visit Vital Signs Vital signs: Vital Signs Temperature 99.1 F 12/13/24 16:55 Pulse Rate 96 12/13/24 16:55 Respiratory Rate 20 12/13/24 16:55 Blood Pressure 118/78 12/13/24 16:55 Pulse Oximetry 96 12/13/24 16:55 Oxygen Delivery Room Air 12/13/24 16:55 Temperature 99.1 F 12/13/24 16:55 Pulse Rate 96 12/13/24 16:55 Respiratory Rate 20 12/13/24 16:55 Blood Pressure 118/78 12/13/24 16:55 Pulse Oximetry 96 12/13/24 16:55 Oxygen Delivery Room Air 12/13/24 16:55 Reviewed MDM - Extremity (Nontraumatic) MDM Narrative Medical decision making narrative: Patient sitting in exam room. Patient is nontoxic, vitals stable. Patient presents with 2 week history of swelling, discomfort, pink area around the nail from the D IP 3rd finger right hand. Patient is concerned she may have broken it without injury. Patient is appropriate for outpatient treatment with close follow-up Discharge instructions reviewed with patient, as well as provided in writing per nursing staff. The instructions also include specific and strict return/GO TO THE ER as well as f/u information. All questions have been answered, and the patient deny any further questions with discharge and discharge plan. Some parts of this dictation were generated by voice recognition software and may contain typographical and/or grammatical inaccuracies. Imaging Data Radiologist's impression: XR finger 3rd RT min 2V 12/13/2024 17:25 Indication: Right third finger pain and swelling Procedure: 3 views right third finger Comparison: No prior studies for comparison. Findings: There is anatomic alignment. No fracture, subluxation or dislocation. No soft tissue abnormality. No foreign bodies. Impression: 1: No acute bone or joint abnormality. Critical Care Time Critical Care Time Critical Care Time: No Discharge Plan Discharge Clinical Impression: Swelling of finger joint Patient Disposition: Home Condition: Stable Instructions: Antibiotic Form, Arthralgia (ED) Additional Instructions: Rest, ice and elevate every 2-3 hours for 15-20 minutes while awake Take antibiotic as prescribed Take Motrin alternating with Tylenol as needed for pain Follow-up with primary care provider Go directly to the emergency room for new or worsening symptoms Patient Language: Maltese Prescriptions: New cephalexin 500 mg capsule 500 mg PO Q8H 7 Days Qty: 21 0RF No Action losartan 50 mg tablet 50 mg PO DAILY Qty: 90 1RF atorvastatin [Lipitor] 20 mg tablet 20 mg PO DAILY Qty: 90 1RF omeprazole 20 mg capsule,delayed release(DR/EC) See Rx Instructions .ROUTE .COMPLEX Qty: 90 3RF Dose Instruction: TAKE 1 CAPSULE DAILY Rx Instructions: TAKE 1 CAPSULE DAILY rizatriptan 10 mg tablet See Rx Instructions PO .COMPLEX Qty: 10 5RF Rx Instructions: take 1 tab at onset of headache; if no relief may repeat 1 tab after at least 2 hrs; max = 3 tabs/24 hr PO Follow-up/Referrals: Juan Borrego MD [Primary Care Provider, Family Practice] - 1 Week Time of Disposition: 18:07
== END 2024-12-13 18:15 | disposition home or self-care (01) ==
PROVIDERS: Emergency Provider Nurse Practitioner; PCP Family Medicine
DX: R22.31 Localized swelling, mass and lump, right upper limb (principal); I10 Essential (primary) hypertension; E78.5 Hyperlipidemia, unspecified; K21.9 Gastro-esophageal reflux disease without esophagitis; E66.9 Obesity, unspecified; Z68.33 Body mass index [BMI] 33.0-33.9, adult
CPT/HCPCS: 73140; 99213; G0463

== ENCOUNTER 2025-01-09 07:50 | Outpatient (CLI) | payer BC, MEDICARE, SELFPAY ==
[2025-01-09 08:31] LABS: Hematocrit 41.5 % (37.0-47.0); Hemoglobin 13.8 g/dL (12.0-15.0); Immature Granulocyte Percent A 0.2 % (0-0.5); Lymphocytes Absolute Auto 1.90 K/mm3 (0.9-3.2); Mean Corpuscular HGB Conc 33.3 g/dl (32-36); Mean Corpuscular Hemoglobin 32.2 pg (26-34); Mean Corpuscular Volume 96.7 fl (80-100); Nucleated Red Blood Cells Absolute Auto 0.000 K/mm3 (0.0-0.012); Nucleated Red Blood Cells Perc 0.0 % (0.0-0.2); Platelet Count Result 264 k/mm3 (150-375); Red Blood Count 4.29 M/mm3 (4.2-5.4); White Blood Count 5.0 K/mm3 (4.5-10.0)
[2025-01-09 09:04] LABS: Alanine Aminotransferase 26 U/L (6-35); Albumin Level 4.1 g/dL (3.5-5.1); Alkaline Phosphatase 123 U/L (38-126); Anion Gap 6 mmol/L (4-12); Aspartate Amino Transferase 38 U/L (14-36); Bilirubin,Total 2.9 mg/dL (0.2-1.3); Blood Urea Nitrogen 15 mg/dL (7-17); CRP < 0.5 mg/dL (<1.0); Calcium 9.3 mg/dL (8.4-10.2); Carbon Dioxide 28 mmol/L (22-30); Chloride 105 mmol/L (98-107); Cholesterol 163 mg/dL (0-200); Estimated Glomerular Filt Rate > 60; Glucose 91 mg/dL (65-110); HDL Direct 51 mg/dL; Potassium 4.1 mmol/L (3.4-5.0); Sodium 139 mmol/L (137-145); Total Protein 7.5 g/dL (6.3-8.2); Triglycerides 83 mg/dL (<150); Uric Acid 3.3 mg/dL (2.5-7.5)
[2025-01-10 12:08] LABS: Anti-CCP Ab, IgG/IgA 8 units (0-19)
== END 2025-01-09 07:51 | disposition home or self-care (01) ==
PROVIDERS: PCP Family Medicine
DX: M25.50 Pain in unspecified joint (principal); M25.40 Effusion, unspecified joint; E66.811 Obesity, class 1; E66.09 Other obesity due to excess calories; Z68.31 Body mass index [BMI] 31.0-31.9, adult; K21.9 Gastro-esophageal reflux disease without esophagitis; K58.9 Irritable bowel syndrome, unspecified; Z13.220 Encounter for screening for lipoid disorders
CPT/HCPCS: 36415; 80053; 80061; 84550; 85025; 85652; 86140; 86200; 86430

== ENCOUNTER 2025-02-05 08:00 | Outpatient (CLI) | payer BC, MEDICARE, SELFPAY ==
--- OUTSIDE RECORDS SUMMARY | 2025-02-05 08:11 | XMS_ITS | Encounter Summary ---
Author Organization [facility] Address [address] [place] [address] Care Team Providers Care Stone Rigger Name Role Phone Juan Borrego MD Primary Care Provider [phone] Encounter Details Date Type Department Care Team (Late st Contact Info) Description 04/19/2018 Telephone [facility] [place] [address] [facility] [address] [place] [address] Yolande Fam MD PhD [address] [facility] [address] [id number] [place], [place] [id number] Social History Tobacco Use Types Packs/Day Years Used Date Smoking Tobacco: Never Smokeless Tobacco: Never Alcohol Use Standard Drinks/Week Comments Yes 0 (1 standard drink = 0.6 oz pur e alcohol) rarely Comments No Sex and Gender Information Value Date Recorded Sex Assigned at Not on file 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
--- OUTSIDE RECORDS SUMMARY | 2025-02-05 08:11 | XMS_ITS | Clinical Summary ---
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 Gender Identity Not on file Sexual Orientation Not on file Obstetrics History Last Filed Vital Signs Vital Sign Reading Time Taken Comments Blood Pressure 149/108 03/09/2020 10:29 AM MACHINE BRUSH MAKER Pulse 103 03/09/2020 10:29 AM MACHINE BRUSH MAKER Temperature 36.4 C (97.5 F) 11/26/2019 8:17 AM CDT Respiratory Rate 16 11/26/2019 8:17 AM CDT Oxygen Saturation 100% 11/26/2019 9:53 AM CDT Inhaled Oxygen Concentration - - Weight 105.7 kg (233 lb) 03/09/2020 10:29 AM MACHINE BRUSH MAKER Height 162.6 cm (5' 4) 03/09/2020 10:29 AM MACHINE BRUSH MAKER Body Mass Index 39.99 03/09/2020 10:29 AM MACHINE BRUSH MAKER Plan of Treatment Not on file Goals [...] strategies and compensatory methods as needed Insurance [facility] ACCESS MEDICARE [facility] MEDICARE [employer] ACCESS OOS Advance Directives For more information, please contact: [phone] * Full Code (Latest Code Status on File) Date Activated Date Inactivated Comments 11/25/2019 4:58 PM 11/26/2019 2:35 PM Care Teams Customer Experience Specialist Relationship Specialty Start Date End Date uJan Borrego MD [address] [facility] [place] [id number] PCP - General 01/19/11
--- OUTSIDE RECORDS SUMMARY | 2025-02-05 08:11 | XMS_ITS | Encounter Summary ---
Author Organization [facility] Healthcare Address [address] [place] [address] Care Team Providers Care Janitorial Assistant Name Role Phone Juan Borrego MD Primary Care Provider [phone] Reason for Visit * Reason Onset Date Comments Reschedule 05/21/2018 Encounter Details Date Type Department Care Team (Late st Contact Info) Description 05/21/2018 Telephone [facility] [place] [facility] [address] [facility] [address] [place] [address] Yolande Fam MD PhD [address] [facility] [id number] [place], [place] [id number] Reschedule Social History Tobacco Use Types Packs/Day Years Used Date Smoking Tobacco: Never Smokeless Tobacco: Never Alcohol Use Standard Drinks/Week Comments Yes 0 (1 standard drink = 0.6 oz pur e alcohol) rarely Comments No Sex and Gender Information Value Date Recorded Sex Assigned at Not on file 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
--- OUTSIDE RECORDS SUMMARY | 2025-02-05 08:11 | XMS_ITS | Clinical Summary ---
Author Organization [facility] Address [address] [facility] [place] [address] Care Team Providers Care Revit Drafter Name Role Phone Juan Borrego MD Primary Care Provider [phone] Source Comments [facility],non-owned Affiliates and Associated Physician Practices is amultiple site organization consisting of ambulatory clinics and hospital sitesin [place], [place], [place] and [place]. This disclosure is being madepursuant to the Care Everywhere program and may not contain all information available regarding this patient. Last updated 18.[employer] [facility] Allergies No known active allergies Medications * [...] on file Legal Sex Female 8:00 AM DOUBLE SPINDLE SHAPER OPERATOR Gender Identity Not on file Sexual Orientation Not on file Last Filed Vital Signs Vital Sign Reading Time Taken Comments Blood Pressure 100/62 05/02/2016 10:20 AM DOUBLE SPINDLE SHAPER OPERATOR Pulse 61 05/02/2016 10:25 AM DOUBLE SPINDLE SHAPER OPERATOR Temperature 36.3 C (97.4 F) 05/02/2016 9:21 AM DOUBLE SPINDLE SHAPER OPERATOR Respiratory Rate 15 05/02/2016 10:05 AM DOUBLE SPINDLE SHAPER OPERATOR Oxygen Saturation 96% 05/02/2016 10:25 AM DOUBLE SPINDLE SHAPER OPERATOR Inhaled Oxygen Concentration - - Weight 108.9 kg (240 lb) 04/28/2016 12:37 PM DOUBLE SPINDLE SHAPER OPERATOR Height 165.1 cm (5' 5) 04/28/2016 12:37 PM DOUBLE SPINDLE SHAPER OPERATOR Body Mass Index 39.94 04/28/2016 12:37 PM DOUBLE SPINDLE SHAPER OPERATOR Plan of Treatment Health Maintenance Due Date Last Done Comments COLOGUARD (AGES 45-75) - COL ON CA SCREENING 1966 COLON MONITORING 1966 COLONOSCOPY - COLON CA SCREENING 1966 CT COLONOGRAPHY - COLON CA SCREENING 1966 Colorectal Cancer Screening 1966 FIT - COLON CA SCREENING 1966 FLEX SIG - COLON CA SCREENING 1966 MAMMOGRAM 1966 HIV SCREENING 1981 HEPATITIS C SCREENING 07/07/1984 DTAP/TDAP/TD VACCINES (1 - Tdap) 1985 HEPATITIS B VACCINE (1 of 3 - 19+ 3-dose series) 1985 PNEUMOCOCCAL VACCINE 50+ (1 of 1 - PCV) 2016 ZOSTER VACCINE (1 of 2) 2016 DEPRESSION SCREENING 04/24/2024 COVID-19 VACCINE ( - 2023-2 5 season) 2024 INFLUENZA VACCINE (#1) 2024 HIB VACCINE Aged Out No longer [...] this topic Medical Devices Implanted Type Area Financial Service Representative Device Identifier Shelf Expiration Date Model / Serial / Lot Graft Skn 4x4cm Allowrap 2 Lyr Epth 2 Implanted:Qty: 1 on 05/02/2016 by Julio Argueta MD at [facility] Right: Ankle [employer] [id number] / / [id number] Graft Tissue Allomend Aclr Drml Mtrx 4x4 Implanted:Qty: 1 on 05/02/2016 by Julio Argueta MD at [facility] Right: Ankle [employer] [id number] / / [id number] Insurance [facility] MEDICARE Care Teams Revit Drafter Relationship Specialty Start Date End Date Juan Borrego MD [address] [place] [address] PCP - General 11/03/21
[2025-02-05 09:19] LABS: Alanine Aminotransferase 21 U/L (6-35); Albumin Level 4.2 g/dL (3.5-5.1); Alkaline Phosphatase 117 U/L (38-126); Aspartate Amino Transferase 38 U/L (14-36); Bilirubin,Total 2.0 mg/dL (0.2-1.3); Total Protein 7.2 g/dL (6.3-8.2)
== END 2025-02-05 08:01 | disposition home or self-care (01) ==
LOC: ANHLAB 08:02
PROVIDERS: PCP Family Medicine
DX: R79.89 Other specified abnormal findings of blood chemistry (principal)
CPT/HCPCS: 36415; 80076

== ENCOUNTER 2025-02-21 07:37 | Outpatient (CLI) | payer BC, MEDICARE, SELFPAY ==
--- NOTE | ~2025-02-21 | CT_ITS ---
EXAMINATION: CT abdomen pelvis w con DATE: 02/21/2025 08:10 INDICATION: Left lower quadrant abdominal pain. TECHNIQUE: Computed tomography (CT) of the abdomen and pelvis was performed with 100 mL Omnipaque 350 intravenous contrast. Automated exposure control and iterative reconstruction technique were employed. The dose-length product was 787.31 mGy-cm. COMPARISON: CT abdomen and pelvis 06/09/2022 FINDINGS: The visualized portions of lung bases demonstrate mild atelectasis. No pleural effusion. The heart size is normal. No pericardial effusion. The liver is normal. There are changes of cholecystectomy. The spleen, pancreas, adrenal glands, and kidneys are normal. There are no dilated loops of bowel. The appendix is not visualized. There are no pathologically enlarged lymph nodes. There is no free intraperitoneal fluid. There is a 13 mm uterine fibroid. There is mild thoracic and lumbar spondylosis. IMPRESSION: 1. Small uterine fibroid. Reviewed, dictated and finalized at location E. IMPRESSION: 1. Small uterine fibroid.
--- OUTSIDE RECORDS SUMMARY | 2025-02-21 07:42 | XMS_ITS | Clinical Summary ---
Author Organization [facility] Address [address] [place] [address] Care Team Providers Care Flower Buncher Or Picker Name Role Phone Juan Borrego MD Primary Care Provider [phone] Allergies No known active allergies Medications acetaminophen [...] (11/06/2019): Added automatically from request for surgery [id number] Urinary incontinence without sensory awareness 0 10/24/2019 [...] on file Legal Sex Female 11:58 PM NEWSWRITER Gender Identity Not on file Sexual Orientation Not on file Obstetrics History Last Filed Vital Signs Vital Sign Reading Time Taken Comments Blood Pressure 149/108 03/09/2020 10:29 AM NEWSWRITER Pulse 103 03/09/2020 10:29 AM NEWSWRITER Temperature 36.4 C (97.5 F) 11/26/2019 8:17 AM CDT Respiratory Rate 16 11/26/2019 8:17 AM CDT Oxygen Saturation 100% 11/26/2019 9:53 AM CDT Inhaled Oxygen Concentration - - Weight 105.7 kg (233 lb) 03/09/2020 10:29 AM NEWSWRITER Height 162.6 cm (5' 4) 03/09/2020 10:29 AM NEWSWRITER Body Mass Index 39.99 03/09/2020 10:29 AM NEWSWRITER Plan of Treatment Not on file Goals [...] strategies and compensatory methods as needed Insurance [facility] ACCESS MEDICARE [facility] MEDICARE [employer] ACCESS OOS Advance Directives For more information, please contact: [phone] * Full Code (Latest Code Status on File) Date Activated Date Inactivated Comments 11/25/2019 4:58 PM 11/26/2019 2:35 PM Care Teams Flower Buncher Or Picker Relationship Specialty Start Date End Date Juan Borrego MD [address] [facility] [place] [id number] PCP - General 01/19/11
--- OUTSIDE RECORDS SUMMARY | 2025-02-21 07:43 | XMS_ITS | Encounter Summary ---
Author Organization [facility] Healthcare Address [address] [place] [address] Care Team Providers Care Engineer Geophysical Laboratory Name Role Phone Juan Borrego MD Primary Care Provider [phone] Reason for Visit * Reason Onset Date Comments Reschedule 05/21/2018 Encounter Details Date Type Department Care Team (Late st Contact Info) Description 05/21/2018 Telephone [facility] [place] [facility] [address] [facility] [address] [place] [address] Yolande Fam MD PhD [id number] [place], [place] [id number] Reschedule Social History Tobacco Use Types Packs/Day Years Used Date Smoking Tobacco: Never Smokeless Tobacco: Never Alcohol Use Standard Drinks/Week Comments Yes 0 (1 standard drink = 0.6 oz pur e alcohol) rarely Comments No Sex and Gender Information Value Date Recorded Sex Assigned at Not on file Legal Sex Female 11:58 PM PRODUCE WRAPPER Gender Identity Not on file Sexual Orientation [...] on filedocumented in this encounter Care Teams Engineer Geophysical Laboratory Relationship Specialty Start Date End Date Juan Borrego MD [address] [place] [address] PCP - General 01/19/11 documented as of this encounter
--- OUTSIDE RECORDS SUMMARY | 2025-02-21 07:43 | XMS_ITS | Encounter Summary ---
Author Organization [facility] Healthcare Address [address] [place] [address] Care Team Providers Care Horse Trekking Guide Name Role Phone Juan Borrego MD Primary Care Provider [phone] Encounter Details Date Type Department Care Team (Late st Contact Info) Description 04/19/2018 Telephone [facility] [address] [facility] [address] [place] [address] Yolande Fam MD PhD [address] [facility] [id number] [place], [place] [id number] Social History Tobacco Use Types Packs/Day Years Used Date Smoking Tobacco: Never Smokeless Tobacco: Never Alcohol Use Standard Drinks/Week Comments Yes 0 (1 standard drink = 0.6 oz pur e alcohol) rarely Comments No Sex and Gender Information Value Date Recorded Sex Assigned at Not on file Legal Sex Female 11:58 PM PATIENT REGISTRATION REP Gender Identity Not on file Sexual Orientation [...] on filedocumented in this encounter Care Teams Horse Trekking Guide Relationship Specialty Start Date End Date Juan Borrego MD [address] [place] [address] PCP - General 01/19/11 documented as of this encounter
--- OUTSIDE RECORDS SUMMARY | 2025-02-21 07:43 | XMS_ITS | Clinical Summary ---
Author Organization [facility] Address [address] [facility] [place] [address] Care Team Providers Care Cooler Tender Name Role Phone Juan Borrego MD Primary Care Provider [phone] Source Comments [facility],non-owned Affiliates and Associated Physician Practices is amultiple site organization consisting of ambulatory clinics and hospital sitesin [place], [place], [place]. This disclosure is being madepursuant to the Care Everywhere program and may not contain all information available regarding this patient. Last updated 18.[employer] [facility] Allergies No known active allergies Medications * [...] on file Legal Sex Female 8:00 AM MANAGER SUPPLY CHAIN PLANNING Gender Identity Not on file Sexual Orientation Not on file Last Filed Vital Signs Vital Sign Reading Time Taken Comments Blood Pressure 100/62 05/02/2016 10:20 AM MANAGER SUPPLY CHAIN PLANNING Pulse 61 05/02/2016 10:25 AM MANAGER SUPPLY CHAIN PLANNING Temperature 36.3 C (97.4 F) 05/02/2016 9:21 AM MANAGER SUPPLY CHAIN PLANNING Respiratory Rate 15 05/02/2016 10:05 AM MANAGER SUPPLY CHAIN PLANNING Oxygen Saturation 96% 05/02/2016 10:25 AM MANAGER SUPPLY CHAIN PLANNING Inhaled Oxygen Concentration - - Weight 108.9 kg (240 lb) 04/28/2016 12:37 PM MANAGER SUPPLY CHAIN PLANNING Height 165.1 cm (5' 5) 04/28/2016 12:37 PM MANAGER SUPPLY CHAIN PLANNING Body Mass Index 39.94 04/28/2016 12:37 PM MANAGER SUPPLY CHAIN PLANNING Plan of Treatment Health Maintenance Due Date [...] this topic Medical Devices Implanted Type Area Trouble Dispatcher Device Identifier Shelf Expiration Date Model / Serial / Lot Graft Skn 4x4cm Allowrap 2 Lyr Epth 2 Implanted:Qty: 1 on 05/02/2016 by Julio Argueta MD at [facility] Right: Ankle [employer] [id number] / / [id number] Graft Tissue Allomend Aclr Drml Mtrx 4x4 Implanted:Qty: 1 on 05/02/2016 by Julio Argueta MD at [facility] Right: Ankle [employer] [id number] / / [id number] Insurance [facility] MEDICARE Care Teams Cooler Tender Relationship Specialty Start Date End Date Juan Borrego MD [address] [place] [address] PCP - General 11/03/21
[2025-02-21 08:04] LABS: Estimated Glomerular Filt Rate 57
== END 2025-02-21 07:38 | disposition home or self-care (01) ==
LOC: ANHIMG 07:40
PROVIDERS: PCP Family Medicine; Visit Provider Nurse Practitioner
DX: D25.9 Leiomyoma of uterus, unspecified (principal); K58.9 Irritable bowel syndrome, unspecified
CPT/HCPCS: 74177; Q9967